=== PATIENT | male | born 1970 | race Caucasian/White ===

== ENCOUNTER 2017-09-09 16:24 | Inpatient (IN) | payer BC ==
--- NOTE | 2017-09-09 17:05 | PDOC ---
Rapid Medical Evaluation Time Seen by Provider: 09/09/17 16:56 Medical Evaluation: Allergies Allergy/AdvReac Type Severity Reaction Status Date / Time Cephalosporins Allergy Verified 12/11/11 13:15 Penicillins Allergy Verified 12/11/11 13:15 I have performed a brief in-person evaluation of this patient. The patient presents with a chief complaint of: fever with cellulitis on back and left armpit. Saw doctor on Wednesday, was started on levaquin. he is a kidney transplant recipient. Limnology Teacher is Dr. Correia. last tylenol was 6am this morning. Patient is not allowed to take motrin. Pertinent physical exam findings: Patient is non toxic but ill appearing. Patient only takes doxy or levaquin for infections. I have ordered the following: sepsis work up The patient will proceed to the ED for further evaluation. Discharge Disposition - Diagnosis Cellulitis - Referrals - Patient Instructions - Post Discharge Activity
--- NOTE | 2017-09-09 17:35 | PDOC ---
History of Present Illness - General Chief Complaint: Respiratory Stated Complaint: FEVER/PAIN Time Seen by Provider: 09/09/17 16:56 - History of Present Illness Initial Comments: 47 year old male with PMH of renal transplant 19 years prior (on Tacrolimus and Mycophenolate) presenting with fevers; left axillary and right lower back swelling, redness, and drainage; and generally weakness for the past week. States that his girlfriend removed a blackhead from his right lower back after which he noticed some swelling, erythema and pain with recent slight drainage. He also has a similar lesion in is left axilla with slight drainage. No measured fevers at home but complains of slight chills and generally feeling "unwell". No nausea, vomiting, diarrhea, constipation, or other symptoms. 09/09/17 18:00 Past History - Past Medical History Allergies/Adverse Reactions: Allergies Allergy/AdvReac Type Severity Reaction Status Date / Time Cephalosporins Allergy Verified 12/11/11 13:15 Penicillins Allergy Verified 12/11/11 13:15 sulfamethoxazole Allergy Verified 09/09/17 17:00 [From Bactrim] trimethoprim [From Bactrim] Allergy Verified 09/09/17 17:00 Home Medications: Ambulatory Orders Albuterol Sulfate [Proair Hfa] 1 - 2 inh PO TID 12/11/11 Aspirin [ASA] 81 mg PO DAILY 12/11/11 Atenolol [Tenormin] 25 mg PO DAILY 12/11/11 Atorvastatin Ca [Lipitor (*)] 40 mg PO HS 12/11/11 Fenofibrate Nanocrystallized [Tricor] 145 mg PO DAILY 12/11/11 Mycophenolate Mofetil [Cellcept] 1,000 mg PO BID 12/11/11 Potassium Chloride [Klor-Con M20] 20 meq PO DAILY 12/11/11 Sertraline HCl 200 mg PO DAILY 12/11/11 Tacrolimus 3 mg PO BID 12/11/11 levoFLOXacin [Levaquin] 250 mg PO DAILY 12/11/11 Cholecalciferol (Vitamin D3) [Vitamin D3 -] 2,000 unit PO DAILY 09/09/17 Clotrimazole/Betamet Diprop [Lotrisone Cream (Small Tube)] 1 applic TP DAILY Dutasteride/Tamsulosin HCl [Umu 0.5-0.4 mg Capsule] 1 each PO DAILY 09/09/17 Famotidine 20 mg PO DAILY 09/09/17 Insulin (LOG) Aspart [NovoLOG -] 20 units SQ BID 09/09/17 Insulin (Levemir) [Levemir Vial] 32 unit SQ BID 09/09/17 Losartan Potassium 100 mg PO DAILY 09/09/17 Magnesium Oxide [Mag-Oxide] 1,200 mg PO BID 09/09/17 [place]-3 Fatty Acids [[place]-3] 2,000 mg PO BID 09/09/17 Sertraline HCl [Zoloft] 100 mg PO BID 09/09/17 Asthma: Yes COPD: No Diabetes: Yes - Suicide/Smoking/Psychosocial Hx Smoking Status: No Smoking History: Never smoked Have you smoked in the past 12 months: No Number of Cigarettes Smoked Daily: 0 Information on smoking cessation initiated: No Hx Alcohol Use: No Drug/Substance Use Hx: No Substance Use Type: None Review of Systems - Review of Systems Constitutional: Yes: Chills, Fever. No: Diaphoresis HEENTM: No: Blurred Vision, Recent change in vision, Double Vision Respiratory: No: Cough, Orthopnea, Shortness of Breath Cardiac (ROS): No: Chest Pain, Edema, Lightheadedness ABD/GI: No: Diarrhea, Nausea, Vomiting : No: Burning, Dysuria, Discharge, Frequency Musculoskeletal: No: Back Pain, Joint Pain, Joint Swelling, Muscle Pain Integumentary: No: Lesions, Lumps Neurological: No: Headache, Numbness Psychiatric: No: Anxiety, Depression *Physical Exam - Vital Signs Last Vital Signs Temp Pulse Resp BP Pulse Ox 99.7 F H 121 H 98 H 157/95 98 09/09/17 17:01 09/09/17 17:01 09/09/17 17:01 09/09/17 17:01 09/09/17 17:01 - Physical Exam General Appearance: Yes: Nourished, Appropriately Dressed. No: Apparent Distress HEENT: positive: EOMI, TERESSA, Normal ENT Inspection, Normal Voice Neck: positive: Trachea midline, Normal Thyroid, Supple. negative: Tender, Rigid Respiratory/Chest: positive: Lungs Clear, Normal Breath Sounds. negative: Chest Tender, Respiratory Distress, Accessory Muscle Use Cardiovascular: positive: Regular Rhythm, Tachycardia Gastrointestinal/Abdominal: positive: Normal Bowel Sounds, Flat, Soft. negative : Tender Musculoskeletal: positive: Normal Inspection. negative: Decreased Range of Motion Extremity: positive: Normal Capillary Refill, Normal Inspection, Normal Range of Motion. negative: Tender Integumentary: positive: Normal Color, Dry, Warm, Swelling, Other (Left lower back subcu swelling with firmness (immature abscess) measuring approximately 3 cms in diameter. Left axillary swelling with slight drainage concerning for ) Neurologic: positive: Fully Oriented, Alert, Normal Mood/Affect, Normal Response , Motor Strength 06/26 ED Treatment Course - LABORATORY CBC & Chemistry Diagram: 09/12/17 06:10 09/12/17 06:10 Medical Decision Making - Medical Decision Making 47 year old male with kidney transplant on immunosuppreants presenting with vital signs concerning for sirs with two mature abscess and surrounding cellulitis. Patient given IV Abx and admitted for further treatment. *DC/Admit/Observation/Transfer Diagnosis at time of Disposition: Cellulitis Qualifiers: Site of cellulitis of extremity: axilla Laterality: left - Referrals - Patient Instructions - Post Discharge Activity
[2017-09-09 17:45] LABS: URINE APPEARANCE CLEAR; URINE BILIRUBIN NEGATIVE (<2.0 mg/dL); URINE COLOR LTYELLOW; URINE GLUCOSE (UA) 3+ (NEGATIVE); URINE KETONE NEGATIVE (NEGATIVE); URINE LEUK ESTERASE NEGATIVE (NEGATIVE); URINE NITRITE NEGATIVE (NEGATIVE); URINE PROTEIN 3+ (NEGATIVE); URINE UROBILINOGEN NEGATIVE mg/dL (0.2-1.0)
[2017-09-09 17:47] LABS: EPI CELLS RARE /HPF (FEW)
[2017-09-09] MEDS ORDERED: ACETAMINOPHEN 1000 MG/100 ML VIAL (NON FORMULARY) IVPB ONE (18:28)
[2017-09-09 18:34] LABS: BASO % 0.2 % (0-2.0); EOS % 0.5 % (0-4.5); HEMATOCRIT 35.1 % (35.4-49); HEMOGLOBIN 11.9 GM/dL (11.7-16.9); MCH 25.5 pg (25.7-33.7); MCHC 33.8 g/dl (32.0-35.9); MEAN CELL VOLUME 75.5 fl (80-96); MEAN PLT VOLUME 8.3 fl (7.5-11.1); MONO % 10.7 % (3.8-10.2); NEUT % 78.6 % (42.8-82.8); PLATELET COUNT 272 K/MM3 (134-434); RBC 4.65 M/mm3 (4.00-5.60); WHITE BLOOD COUNT 16.2 K/mm3 (4.0-10.0)
[2017-09-09] MEDS ORDERED: SODIUM CHLORIDE 0.9% 500 ML INFUS.BAG IV ONE ×2 (18:34→19:35)
[2017-09-09 18:35] LABS: INR 1.38 (0.82-1.09); PROTHROMBIN TIME (PATIENT) 15.6 SEC (9.7-13.0)
[2017-09-09 18:38] LABS: ACTIVATED PTT 31.4 SECONDS (25.2-36.5)
[2017-09-09 18:44] LABS: ALBUMIN 3.5 g/dl (3.4-5.0); ALK PHOS 128 U/L (45-117); ANION GAP 11 (8-16); BILIRUBIN,TOTAL 0.5 mg/dL (0.2-1.0); BLOOD UREA NITROGEN 32 mg/dL (7-18); CALCIUM 9.6 mg/dL (8.5-10.1); CHLORIDE 97 mmol/L (98-107); CO2 23 mmol/L (21-32); CREATININE 1.7 mg/dL (0.7-1.3); GLUCOSE,RANDOM 321 mg/dL (74-106); POTASSIUM 4.3 mmol/L (3.5-5.1); SGOT/AST 16 U/L (15-37); SGPT/ALT 27 U/L (12-78); SODIUM 131 mmol/L (136-145)
[2017-09-09] MEDS ORDERED: ACETAMINOPHEN INJECTION 100 ML IVPB ONE (18:45)
--- NOTE | 2017-09-09 19:33 | PDOC ---
Attending Attestation - Resident Resident Name: Jonathan Benito - ED Attending Attestation I have performed the following: I have examined & evaluated the patient, The case was reviewed & discussed with the resident, I agree w/resident's findings & plan, Exceptions are as noted - Medical Decision Making 09/09/17 19:33 I, Dr. Brooke Dunn, DO, attest that this document has been prepared under my direction and personally reviewed by me in its entirety. I further attest, that it accurately reflects all work, treatment, procedures and medical decision -making performed by me. 09/09/17 19:43 a/p: 47yo male with hx of kidney transplant 19yrs ago with fever since wednesday and L axilla and R low back abscesses -actively draining wounds -wound cultures, blood cultures sent -baseline cr 1.5 -on outpt levaquin - will broaden to vanco -will send labs -cr 1.7, consult placed to Dr. 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 States his girlfriend attempted to "pop" a blackhead on his back prior to the onset of his symptoms. States he has been taking Levaquin PO without apparent relief. - Physicial Exam PE: 09/09/17 20:16 Constitutional: Awake, alert, oriented. No acute distress. Febrile, Warm to touch. Head: Normocephalic. Atraumatic Eyes: PERRL. EOMI. Conjunctivae are not pale. ENT: Mucous membranes are moist and intact. Posterior pharynx without exudates or erythema. Uvula midline. Neck: Supple. Full ROM. No lymphadenopathy. Cardiovascular: +Tachycardic rate, regular rhythm. S1, S2 regular. Distal pulses are 2+ and symmetric. Pulmonary/Chest: No evidence of respiratory distress. Clear to auscultation bilaterally No wheezing, rales or rhonchi. Abdominal: Soft and non-distended. There is no tenderness. No rebound, guarding or rigidity. No organomegaly. No palpable masses. Good bowel sounds. Back: No CVA tenderness. Musculoskeletal: No edema. No cyanosis. No clubbing. Full range of motion in all extremities. Nocalf tenderness. Radial/pedal pulses are intact and 2+ bilaterally Skin: +2.5x 4 cm abscess under the left axillary with purulent discharge. +3x3 cm abscess with purulent discharge to the right lower back. Neurological: Alert and oriented to person, place, and time. Cranial nerves II -XII are grossly intact. Normal speech. Strength is grossly symmetric. No sensory deficits. Psychiatric: Good eye contact. Normal interaction, affect and behavior. - Medical Decision Making 09/09/17 20:21 Documentation prepared by Lula Godfrey, acting as medical videographer for Brooke Dunn DO. <Lula Godfrey - Last Filed: 09/09/17 20:21> Heart Score/ECG Review - ECG Intrepretation Comment:: 09/09/17 19:47 sinus tach at 118, nl axis, nl interval, t wave inversions III, no acute st changes <Brooke Dunn - Last Filed: 09/09/17 19:43>
[2017-09-09] MEDS ORDERED: VANCOMYCIN 1,000 MG in DEXTROSE 5%-WATER - 250 ML IVPB ONE (19:34)
--- NOTE | 2017-09-09 21:00 | PN ---
Teaching Attending Note Name of Resident: Mike Gardner ATTENDING PHYSICIAN STATEMENT I saw and evaluated the patient. I reviewed the resident's note and discussed the case with the resident. I agree with the resident's findings and plan as documented. SUBJECTIVE: Patient is a 47 year old man with PMH of Asthma, DM, renal transplant 19 years prior (on Tacrolimus and Mycophenolate) presenting with fevers, left axillary and right lower back swelling abscesses. He also has had generalized weakness for the past week and has not been eating well or ingesting enough liquids in past 3 days. States that his girlfriend removed a blackhead from his right lower back with a tweezer. Has had prior episodes of skin abscess. No diabetic eye care or foot care for over one year. Says his creatinine was 1.3 mg/dL two weeks ago and is now 1.7 mg/dL so he is naturally concerned about his transplant kidney function. OBJECTIVE: Alert and in no distress Vital Signs Period Temp Pulse Resp BP Sys/Pena Pulse Ox Last 24 Hr 99.7 F-102.5 F 121-125 20-98 131-157/89-95 96-98 HEENT: No Jaundice, eye redness or discharge, PERRLA, EOMI. Normocephalic, atraumatic. External ears are normal and hearing is grossly intact. No nasal discharge. 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 Neck: Supple, nontender. No palpable adenopathy or thyromegaly. No JVD Chest: Good effort. Clear to auscultation and percussion. Heart: Regular. No S3, rub or murmur Abdomen: Not distended, soft, nontender and no HSM. No rebound or guarding. Normoactive bowel sounds. Transplant kidney in RLQ and not tender. Ext: Peripheral pulses intact. No leg edema. Left axilla abscess and right lower back abscess. Skin: Warm and dry. No petechiae, rash or ecchymosis. Neuro: Alert. Oriented x3. CN 2-12 grossly intact. Sensation grossly intact in all four extremities and DTR are symmetric. Home Medications Medication Instructions Recorded Albuterol Sulfate [Proair Hfa] 1 - 2 inh PO TID 12/11/11 Aspirin [ASA] 81 mg PO DAILY 12/11/11 Atenolol [Tenormin] 25 mg PO DAILY 12/11/11 Atorvastatin Ca [Lipitor (*)] 40 mg PO HS 12/11/11 Fenofibrate Nanocrystallized 145 mg PO DAILY 12/11/11 [Tricor] Mycophenolate Mofetil [Cellcept] 1,000 mg PO BID 12/11/11 Potassium Chloride [Klor-Con M20] 20 meq PO DAILY 12/11/11 Sertraline HCl 200 mg PO DAILY 12/11/11 Tacrolimus 3 mg PO BID 12/11/11 levoFLOXacin [Levaquin] 250 mg PO DAILY 12/11/11 Cholecalciferol (Vitamin D3) 2,000 unit PO DAILY 09/09/17 [Vitamin D3 -] Clotrimazole/Betamet Diprop 1 applic TP DAILY 09/09/17 [Lotrisone Cream (Small Tube)] Dutasteride/Tamsulosin HCl [Umu 1 each PO DAILY 09/09/17 0.5-0.4 mg Capsule] Famotidine 20 mg PO DAILY 09/09/17 Insulin (LOG) Aspart [NovoLOG -] 20 units SQ BID 09/09/17 Insulin (Levemir) [Levemir Vial] 32 unit SQ DAILY 09/09/17 Losartan Potassium 100 mg PO DAILY 09/09/17 Magnesium Oxide [Mag-Oxide] 1,200 mg PO BID 09/09/17 Osteen-3 Fatty Acids [[place]-3] 2,000 mg PO BID 09/09/17 Abnormal Lab Results 09/09/17 09/09/17 09/09/17 17:35 18:00 18:00 WBC 16.2 H Hct 35.1 L MCV 75.5 L MCH 25.5 L Monocytes % 10.7 H PT with INR 15.60 H INR 1.38 H D Sodium Chloride BUN Creatinine Random Glucose Alkaline Phosphatase Urine Protein 3+ H Urine Glucose (UA) 3+ H Urine Blood 1+ H 09/09/17 18:00 WBC Hct MCV MCH Monocytes % PT with INR INR Sodium 131 L Chloride 97 L BUN 32 H Creatinine 1.7 H Random Glucose 321 H* Alkaline Phosphatase 128 H Urine Protein Urine Glucose (UA) Urine Blood ASSESSMENT AND PLAN: 1. Left axilla and right lower back abscess - Will treat him with clindamycin 600 mg IV q 6 hours pending culture report. He had blood and wound cultures sent. Consult surgery for possible I&D. Use warm compress in the axilla to reduce pain. CXR is negative. 2. Kidney transplant - Continue Tacrolimus and Mycophenolate. Will give gentle IV hydration (NS at 50 ml/hour) and encourage liberal oral fluids. He is dehydrated and it is prudent to avoid vancomycin as well as other nephrotoxic agents such as NSAIDS, aminoglycosides, contrast dyes and certain alternative medicine products. Consult nephrology. May need to investigate and quantify proteinuria. 3. DM - For now, we will hold the home diabetes drugs and implement sliding scale insulin regimen. Provide comprehensive diabetes care with patient teaching and counseling about the importance of euglycemia, eye care and foot care. 4. Low MCV Anemia - Do basic anemia work up including serial stool guaiacs, reticulocyte count and iron studies. 5. Obesity - Will provide patient all the necessary assistance, counseling and positive reinforcement to facilitate weight loss. Consult process plant operator. 6. DVT prophylaxis - Heparin 5000u sq tid. 7. Advance directives - Full code
[2017-09-09] MEDS ORDERED: VANCOMYCIN 1 GRAM (PRE-DOCKED) 1,000 MG/250 ML BAG IVPB ONE (21:20)
[2017-09-09] MEDS ORDERED: ATORVASTATIN CA 40 MG TABLET (FP) PO SCH (22:00)
[2017-09-09] MEDS ORDERED: ALBUTEROL SO4 8 GM HFA INHALER IH PRN (22:00)
[2017-09-09] MEDS: INSULIN SLIDING SCALE (NOVOLOG) 1 VIAL SQ SCH (22:41)
[2017-09-09] MEDS: TACROLIMUS ANHYDROUS 1 MG CAPSULE PO SCH (23:04)
[2017-09-09] MEDS: CLINDAMYCIN 600MG PREMIX IVPB 600 MG/50 ML BAG IVPB SCH (23:04)
[2017-09-09] MEDS: MYCOPHENOLATE MOFETIL 500 MG TABLET PO SCH (23:05)
[2017-09-09] MEDS ORDERED: SODIUM CHLORIDE 1,000 ML IV SCH (23:45)
[2017-09-09 23:50] VITALS: BMI 36.8
[2017-09-10] MEDS ORDERED: ACETAMINOPHEN 325 MG TABLET (FP) PO PRN ×2 (01:15→19:40)
--- NOTE | 2017-09-10 01:47 | HP ---
CHIEF COMPLAINT: Left axillary and right lower back pain, swelling PCP: HISTORY OF PRESENT ILLNESS: 47 y/o male with PMH renal transplant on tacrolimus and mycophenolate, DM, asthma presents with complaint of left axillary and right lower back pain and swelling for the past week. States that he experienced increased sweating and pruritis under his arms, that resulted in frequent scratching but denies breaking the skin. Also admits that approx. 2 weeks ago his girlfriend removed several blackheads from his back with tweezers. He now reports pain and swelling over the area that began worsening over the weekend. Admits to mucopurulent discharge from both sites. Endorses history of prior abscesses. Admits fevers, sweats, chills, malaise, nausea. Denies chest pain, palpitations , shortness of breath, vomiting, diarrhea, hematuria. ER course was notable for: (1) Levaquin, Vancomyin, Ofirimev (2) blood cx, urine cx, wound cx (3) Recent Travel: PAST MEDICAL HISTORY: PAST SURGICAL HISTORY: Social History: Smoking: denies Alcohol: denies Drugs: denies Family History: Allergies Cephalosporins Allergy (Verified 12/11/11 13:15) Penicillins Allergy (Verified 12/11/11 13:15) sulfamethoxazole [From Bactrim] Allergy (Verified 09/09/17 17:00) trimethoprim [From Bactrim] Allergy (Verified 09/09/17 17:00) HOME MEDICATIONS: Home Medications Medication Instructions Recorded Albuterol Sulfate [Proair Hfa] 1 - 2 inh PO TID 12/11/11 Aspirin [ASA] 81 mg PO DAILY 12/11/11 Atenolol [Tenormin] 25 mg PO DAILY 12/11/11 Atorvastatin Ca [Lipitor (*)] 40 mg PO HS 12/11/11 Fenofibrate Nanocrystallized 145 mg PO DAILY 12/11/11 [Tricor] Mycophenolate Mofetil [Cellcept] 1,000 mg PO BID 12/11/11 Potassium Chloride [Klor-Con M20] 20 meq PO DAILY 12/11/11 Sertraline HCl 200 mg PO DAILY 12/11/11 Tacrolimus 3 mg PO BID 12/11/11 levoFLOXacin [Levaquin] 250 mg PO DAILY 12/11/11 Cholecalciferol (Vitamin D3) 2,000 unit PO DAILY 09/09/17 [Vitamin D3 -] Clotrimazole/Betamet Diprop 1 applic TP DAILY 09/09/17 [Lotrisone Cream (Small Tube)] Dutasteride/Tamsulosin HCl [Umu 1 each PO DAILY 09/09/17 0.5-0.4 mg Capsule] Famotidine 20 mg PO DAILY 09/09/17 Insulin (LOG) Aspart [NovoLOG -] 20 units SQ BID 09/09/17 Insulin (Levemir) [Levemir Vial] 32 unit SQ DAILY 09/09/17 Losartan Potassium 100 mg PO DAILY 09/09/17 Magnesium Oxide [Mag-Oxide] 1,200 mg PO BID 09/09/17 [place]-3 Fatty Acids [[place]-3] 2,000 mg PO BID 09/09/17 Sertraline HCl [Zoloft] 200 mg PO DAILY 09/09/17 REVIEW OF SYSTEMS As per HPI PHYSICAL EXAMINATION Vital Signs - 24 hr 09/09/17 09/09/17 09/09/17 17:01 17:24 18:25 Temperature 99.7 F H 102.5 F H Pulse Rate 121 H Pulse Rate [ 125 H Left Radial] Respiratory 98 H 20 Rate Blood Pressure 157/95 Blood Pressure 131/89 [Right Arm] O2 Sat by Pulse 98 98 96 Oximetry (%) 09/09/17 23:00 Temperature 98.7 F Pulse Rate 103 H Pulse Rate [ Left Radial] Respiratory 19 Rate Blood Pressure 153/86 Blood Pressure [Right Arm] O2 Sat by Pulse 97 Oximetry (%) GENERAL: Awake, alert, and fully oriented, in no acute distress. HEAD: Normal with no signs of trauma. EYES: Pupils equal, round and reactive to light, extraocular movements intact, sclera anicteric. EARS, NOSE, THROAT: Oropharynx clear without exudates. Moist mucous membranes. NECK: Normal range of motion, supple without lymphadenopathy. LUNGS: Breath sounds equal, clear to auscultation bilaterally. No wheezes, and no crackles. HEART: Regular rate and rhythm, normal S1 and S2 without murmur, rub or gallop. ABDOMEN: Soft, nontender, not distended, normoactive bowel sounds, no guarding, no rebound. EXTREMITIES: 2+ pulses, warm, well-perfused. No cyanosis. No peripheral edema. NEUROLOGICAL: Cranial nerves II-XII intact. Normal speech. PSYCHIATRIC: Cooperative. Appropriate mood and affect. SKIN: 2.5cm x 4cm abscess at left axilla, 3cm x 3cm abscess at right lower back. Both draining purulent discharge, indurated, erythematous, tender to palpation. Laboratory Results - last 24 hr 09/09/17 09/09/17 09/09/17 17:35 18:00 18:00 WBC 16.2 H RBC 4.65 Hgb 11.9 Hct 35.1 L MCV 75.5 L MCH 25.5 L MCHC 33.8 RDW 15.0 Plt Count 272 D MPV 8.3 Absolute Neuts (auto) 12.7 Neutrophils % 78.6 Lymphocytes % 10.0 D Monocytes % 10.7 H Eosinophils % 0.5 Basophils % 0.2 Nucleated RBC % 0 PT with INR 15.60 H INR 1.38 H D PTT (Actin FS) 31.4 Sodium Potassium Chloride Carbon Dioxide Anion Gap BUN Creatinine Creat Clearance w eGFR POC Glucometer Random Glucose Lactic Acid Calcium Total Bilirubin AST ALT Alkaline Phosphatase Troponin I Total Protein Albumin Urine Color Ltyellow Urine Appearance Clear Urine pH 5.0 Ur Specific [place] 1.013 Urine Protein 3+ H Urine Glucose (UA) 3+ H Urine Ketones Negative Urine Blood 1+ H Urine Nitrite Negative Urine Bilirubin Negative Urine Urobilinogen Negative Ur Leukocyte Esterase Negative Urine WBC (Auto) 1 Urine RBC (Auto) 3 Ur Epithelial Cells Rare 09/09/17 09/09/17 09/09/17 18:00 18:00 18:00 WBC RBC Hgb Hct MCV MCH MCHC RDW Plt Count MPV Absolute Neuts (auto) Neutrophils % Lymphocytes % Monocytes % Eosinophils % Basophils % Nucleated RBC % PT with INR INR PTT (Actin FS) Sodium 131 L Potassium 4.3 Chloride 97 L Carbon Dioxide 23 Anion Gap 11 BUN 32 H Creatinine 1.7 H Creat Clearance w eGFR 43.61 POC Glucometer Random Glucose 321 H* Lactic Acid 1.1 Calcium 9.6 Total Bilirubin 0.5 AST 16 ALT 27 Alkaline Phosphatase 128 H Troponin I < 0.02 Total Protein 8.0 Albumin 3.5 Urine Color Urine Appearance Urine pH Ur Specific [place] Urine Protein Urine Glucose (UA) Urine Ketones Urine Blood Urine Nitrite Urine Bilirubin Urine Urobilinogen Ur Leukocyte Esterase Urine WBC (Auto) Urine RBC (Auto) Ur Epithelial Cells 07/19/18 22:40 WBC RBC Hgb Hct MCV MCH MCHC RDW Plt Count MPV Absolute Neuts (auto) Neutrophils % Lymphocytes % Monocytes % Eosinophils % Basophils % Nucleated RBC % PT with INR INR PTT (Actin FS) Sodium Potassium Chloride Carbon Dioxide Anion Gap BUN Creatinine Creat Clearance w eGFR POC Glucometer 318 Random Glucose Lactic Acid Calcium Total Bilirubin AST ALT Alkaline Phosphatase Troponin I Total Protein Albumin Urine Color Urine Appearance Urine pH Ur Specific [place] Urine Protein Urine Glucose (UA) Urine Ketones Urine Blood Urine Nitrite Urine Bilirubin Urine Urobilinogen Ur Leukocyte Esterase Urine WBC (Auto) Urine RBC (Auto) Ur Epithelial Cells ASSESSMENT/PLAN: Multiple Abscesses- left axilla, right lower back -DC Vanco d/t nephrotixicity -Begin Clindamycin 600 Q6 -Pain control with Tylenol -Apply warm compress PRN -ID consult requested for antibiotic recommendations -Surgical consult requested for possible I&D -F/U wound, blood cultures, urine cultures S/P renal transplant -Cr at baseline 1.5 -> 1.7 now -IVNS at 50ml/hr, encourage oral hydration -Reinstate home medication tacrolimus, mcophenolate -Nephrology consult requested -F/U BUN, Cr Microcytic anemia -F/U Fe studies, reticulocyte count, stool guiac, DM -Hold home medications -ISS, fingerstick blood glucose monitoring Obesity -Can Crimper consult requested Prophylaxis -Heparin 5000u subq TID FEN -IVNS at 50ml/ hr -Trend Na and Chloride -Renal diet Disposition: Admit to medical surgical floor Advance directives: full code Case discussed with field installation technician attending Visit type - Emergency Visit Emergency Visit: Yes ED Registration Date: 09/09/17 Care time: The patient presented to the Emergency Department on the above date and was hospitalized for further evaluation of their emergent condition. - New Patient This patient is new to me today: Yes Date on this admission: 09/10/17 - Critical Care Critical Care patient: No Hospitalist Screening - Colonoscopy Questionnaire Colonoscopy Questionnaire: Colonoscopy Questionnaire - Patient: 50 - 75 years old and never had a screening colonoscopy: Unknown History of colon or rectal polyps, or CA: Unknown History of IBD, Crohn's disease or UC: Unknown History of abdominal radiation therapy as a child: Unknown - Relative: 1 with colon or rectal CA, or polyps at age 60 or younger: Unknown Colon or rectal CA diagnosed at age 45 or younger: Unknown Multiple relatives with colon or rectal CA: Unknown - Outcome: Screening Result: Negative Screen
[2017-09-10] MEDS: CLINDAMYCIN 600MG PREMIX IVPB 600 MG/50 ML BAG IVPB SCH ×4 (02:37→20:30)
[2017-09-10] MEDS ORDERED: HEPARIN NA (PORCINE) 5,000 UNITS/ML 1ML VIAL SQ SCH (06:00)
[2017-09-10] MEDS: INSULIN SLIDING SCALE (NOVOLOG) 1 VIAL SQ SCH ×4 (06:26→22:50)
[2017-09-10 07:17] LABS: BASO % 0.2 % (0-2.0); EOS % 0.8 % (0-4.5); HEMATOCRIT 32.5 % (35.4-49); HEMOGLOBIN 11.2 GM/dL (11.7-16.9); LYMPH % 9.2 % (8-40); MCH 26.2 pg (25.7-33.7); MCHC 34.6 g/dl (32.0-35.9); MEAN CELL VOLUME 75.6 fl (80-96); MEAN PLT VOLUME 8.1 fl (7.5-11.1); MONO % 11.2 % (3.8-10.2); NEUT % 78.6 % (42.8-82.8); PLATELET COUNT 233 K/MM3 (134-434); RBC 4.29 M/mm3 (4.00-5.60); WHITE BLOOD COUNT 14.8 K/mm3 (4.0-10.0)
[2017-09-10 07:38] LABS: ALBUMIN 2.9 g/dl (3.4-5.0); ANION GAP 12 (8-16); BILIRUBIN,TOTAL 0.6 mg/dL (0.2-1.0); BLOOD UREA NITROGEN 34 mg/dL (7-18); CALCIUM 8.6 mg/dL (8.5-10.1); CHLORIDE 97 mmol/L (98-107); CO2 21 mmol/L (21-32); CREATININE 1.6 mg/dL (0.7-1.3); GLUCOSE,RANDOM 286 mg/dL (74-106); POTASSIUM 4.4 mmol/L (3.5-5.1); SGOT/AST 11 U/L (15-37); SGPT/ALT 21 U/L (12-78); SODIUM 130 mmol/L (136-145)
[2017-09-10 07:41] LABS: ALK PHOS 109 U/L (45-117)
--- NOTE | 2017-09-10 09:06 | CONSULT ---
- Consultation REQUESTING PROVIDER: Margarito Gianluca CONSULT REQUEST: We have been asked to surgically evaluate this patient for multiple abscesses PCP: Gila Navarro MD HPI: Called to guido 47 yo male with PMHx as noted below, presents to [facility] ED with c/o pain to LEFT axilla and RIGHT lower back x1 week. Admits to profuse underarm sweating/pruritis which lead to him scratching. Also informs me that ~ 2 weeks ago his girlfriend tired removing a blackhead from his right lower back --> now grossly swollen/tender and draining. States he took his temp at home orally 101F. Took Tylenol 650mg Q4H. Was seen by his PCP who started him on PO ABX. [place] very tired yesterday and unable to move so he came to hospital for further evaluation. Denies CP, SOB, n/v/d/c, hematuria, or flank pain. PMHx: Morbid obesity, Tyep 2 Diabetes, Asthma, Strep Pharyngitis PSHx: Renal transplant x19 years Home Meds Albuterol Sulfate [Proair Hfa] 1 - 2 inh PO TID 12/11/11 Aspirin [ASA] 81 mg PO DAILY 12/11/11 Atenolol [Tenormin] 25 mg PO DAILY 12/11/11 Atorvastatin Ca [Lipitor (*)] 40 mg PO HS 12/11/11 Fenofibrate Nanocrystallized [Tricor] 145 mg PO DAILY 12/11/11 Mycophenolate Mofetil [Cellcept] 1,000 mg PO BID 12/11/11 Potassium Chloride [Klor-Con M20] 20 meq PO DAILY 12/11/11 Sertraline HCl 200 mg PO DAILY 12/11/11 Tacrolimus 3 mg PO BID 12/11/11 levoFLOXacin [Levaquin] 250 mg PO DAILY 12/11/11 Cholecalciferol (Vitamin D3) [Vitamin D3 -] 2,000 unit PO DAILY 09/09/17 Clotrimazole/Betamet Diprop [Lotrisone Cream (Small Tube)] 1 applic TP DAILY Dutasteride/Tamsulosin HCl [Umu 0.5-0.4 mg Capsule] 1 each PO DAILY 09/09/17 Famotidine 20 mg PO DAILY 09/09/17 Insulin (LOG) Aspart [NovoLOG -] 20 units SQ BID 09/09/17 Insulin (Levemir) [Levemir Vial] 32 unit SQ DAILY 09/09/17 Losartan Potassium 100 mg PO DAILY 09/09/17 Magnesium Oxide [Mag-Oxide] 1,200 mg PO BID 09/09/17 [place]-3 Fatty Acids [[place]-3] 2,000 mg PO BID 09/09/17 Sertraline HCl [Zoloft] 200 mg PO DAILY 09/09/17 Allergies Cephalosporins, PCNS, Sulfa ROS: CONSTITUTIONAL: Absent: loss of appetite, weight change CARDIOVASCULAR: Absent: syncope, palpitations, irregular heart rate, lightheadedness, peripheral edema RESPIRATORY: Absent: cough, dyspnea with exertion, wheezing, stridor, hemoptysis GASTROINTESTINAL:Absent: abdominal pain, abdominal distension, melena, hematochezia GENITOURINARY: Absent: dysuria, frequency, urgency, hesitancy, genital pain MUSCULOSKELETAL: Absent: myalgia, arthralgia, joint swelling, back pain, neck pain SKIN: Absent: see hpi HEMATOLOGIC/IMMUNOLOGIC: Absent: easy bleeding, easy bruising, lymphadenopathy NEUROLOGIC: Absent: headache, focal weakness, paresthesias, dizziness, unsteady gait, seizure, mental status changes, PSYCHIATRIC: Absent: anxiety, depression, suicidal or homicidal ideation, hallucinations. PE: GENERAL: A&Ox3 HEAD: NC.AT. EYES: PERRL, sclera anicteric, conjunctiva clear. NECK:Supple without lymphadenopathy UE: Left axilla with fluctuant mass, + purulent drainage, erythematous, hot to touch, TTP ABD: Obese. Soft. NT BACK: Right low back with indurated/fluctuant mass, erythematous, + purulent drainage, TTP Last Vital Signs Temp Pulse Resp BP Pulse Ox 99.8 F H 98 H 20 150/85 97 09/10/17 05:52 09/10/17 05:52 09/10/17 05:52 09/10/17 05:52 09/09/17 23:00 CBC, BMP 09/10/17 06:20 09/10/17 06:20 INR, PTT INR 1.38 (0.82-1.09) H D 09/09/17 18:00 Hepatic Panel Total Bilirubin 0.6 mg/dL (0.2-1.0) 09/10/17 06:20 AST 11 U/L (15-37) L D 09/10/17 06:20 ALT 21 U/L (12-78) D 09/10/17 06:20 Alkaline Phosphatase 109 U/L (45-117) D 09/10/17 06:20 Albumin 2.9 g/dl (3.4-5.0) L 09/10/17 06:20 Problem List - Problems (1) Abscess Assessment/Plan: 47 yo male with h/o renal transplant 19 yrs ago, admit w/ multiple abscesses ( Lt axilla and Rt low back). Needs to go to OR for surgical I&D with washout Made NPO as he is added for OR schedule at 4PM today - may take his morning meds w/ sips of water Type and Screen ordered IV ABX as per ID Medical optimization/clearance Above plan discussed with Dr. Hough and agrees Code(s): L02.91 - CUTANEOUS ABSCESS, UNSPECIFIED Visit type - Case Type Case Type: ED Admission - Emergency Emergency Visit: Yes ED Registration Date: 09/09/17 Care time: The patient presented to the Emergency Department on the above date and was hospitalized for further evaluation of their emergent condition. - New patient This patient is new to me today: Yes Date on this admission: 09/10/17
[2017-09-10] MEDS ORDERED: INSULIN (LEVEMIR) 100 UNITS/ML UNITS SQ SCH (10:00)
[2017-09-10] MEDS ORDERED: ATENOLOL 25 MG TABLET (FP) PO SCH (10:00)
[2017-09-10] MEDS ORDERED: ASPIRIN 81 MG CHEWABLE TABLETS PO SCH (10:00)
[2017-09-10] MEDS ORDERED: LOSARTAN POTASSIUM 50 MG TABLET (FP) PO SCH (10:00)
[2017-09-10] MEDS ORDERED: PT OWN MED DRAWER 7, Y5N ONE ×2 (10:19→22:38)
[2017-09-10] MEDS: MYCOPHENOLATE MOFETIL 500 MG TABLET PO SCH ×2 (10:24→22:49)
[2017-09-10] MEDS: TACROLIMUS ANHYDROUS 1 MG CAPSULE PO SCH ×2 (10:25→22:49)
--- NOTE | 2017-09-10 12:12 | EKG ---
Test Reason : Blood Pressure : / mmHG Vent. Rate : 118 BPM Atrial Rate : 118 BPM P-R Int : 144 ms QRS Dur : 086 ms QT Int : 312 ms P-R-T Axes : 027 029 007 degrees QTc Int : 437 ms SINUS TACHYCARDIA OTHERWISE NORMAL ECG WHEN COMPARED WITH ECG OF 30-NOV-2009 01:24, T WAVE INVERSION NO LONGER EVIDENT IN ANTEROLATERAL LEADS Confirmed by LEXIS CHEATHAM MD ([id number]) on 09/10/2017 12:12:02 PM Referred By: Confirmed By:LEXIS CHEATHAM MD
--- NOTE | 2017-09-10 12:40 | PN ---
Progress Note (short form) - Note Progress Note: ID Consult dictated Soft tissue abscesses Fever/ leukocytosis R/O sepsis S/P renal transplant Azotemia Cephalosporin allergy For I&D Redose vancomycin, check level am HIV testing (pt consents)
--- NOTE | 2017-09-10 12:45 | CONSULT ---
Consult - text type - Consultation Consultation Note: Renal Consult for ESRD/Renal Transplant This is a 47 year old gentleman with PMhx of ESRD s/p Renal Transplant (19 year ago from live donor), DM, Asthma presented with cellulitis/abcess on skin. Pt was treated with oral Abx as outpatient w/o signifincat improvement. Denises any sob, chest pain, abd pain. No pain over transplanted kidney site. Making urine. On Tacrolimus and Cellcept at home. Denies any NSAID use. PMhx: as above Allergies: NKDA Family hx: NC Social hx: No T/A/D ROS: as per HPI Home Medications Medication Instructions Recorded Albuterol Sulfate [Proair Hfa] 1 - 2 inh PO TID 12/11/11 Aspirin [ASA] 81 mg PO DAILY 12/11/11 Atenolol [Tenormin] 25 mg PO DAILY 12/11/11 Atorvastatin Ca [Lipitor (*)] 40 mg PO HS 12/11/11 Fenofibrate Nanocrystallized 145 mg PO DAILY 12/11/11 [Tricor] Mycophenolate Mofetil [Cellcept] 1,000 mg PO BID 12/11/11 Potassium Chloride [Klor-Con M20] 20 meq PO DAILY 12/11/11 Sertraline HCl 200 mg PO DAILY 12/11/11 Tacrolimus 3 mg PO BID 12/11/11 levoFLOXacin [Levaquin] 250 mg PO DAILY 12/11/11 Cholecalciferol (Vitamin D3) 2,000 unit PO DAILY 09/09/17 [Vitamin D3 -] Clotrimazole/Betamet Diprop 1 applic TP DAILY 09/09/17 [Lotrisone Cream (Small Tube)] Dutasteride/Tamsulosin HCl [Umu 1 each PO DAILY 09/09/17 0.5-0.4 mg Capsule] Famotidine 20 mg PO DAILY 09/09/17 Insulin (LOG) Aspart [NovoLOG -] 20 units SQ BID 09/09/17 Insulin (Levemir) [Levemir Vial] 32 unit SQ DAILY 09/09/17 Losartan Potassium 100 mg PO DAILY 09/09/17 Magnesium Oxide [Mag-Oxide] 1,200 mg PO BID 09/09/17 [place]-3 Fatty Acids [[place]-3] 2,000 mg PO BID 09/09/17 Sertraline HCl [Zoloft] 200 mg PO DAILY 09/09/17 Vital Signs Temperature 99.8 F H 09/10/17 05:52 Pulse Rate 98 H 09/10/17 05:52 Respiratory Rate 20 09/10/17 05:52 Blood Pressure 150/85 09/10/17 05:52 O2 Sat by Pulse Oximetry (%) 97 09/09/17 23:00 Intake & Output 09/07/17 09/08/17 09/09/17 09/10/17 23:59 23:59 23:59 23:59 Intake Total 600 Balance 600 Weight 103.6 kg NAD awake and alert MMM, no JVD, Neck supple RRR, No M/R CTA, no rales or wheeze soft NT/ND No LE edema CBC, BMP 09/10/17 06:20 09/10/17 06:20 Laboratory Tests 09/09/17 09/10/17 17:35 06:20 Calcium 8.6 Albumin 2.9 L Urine Protein 3+ H Urine Glucose (UA) 3+ H Urine Blood 1+ H Current Medications Acetaminophen (Tylenol -) 650 mg PO Q6H PRN PRN Reason: Fever Or Pain Last Admin: 09/10/17 01:37 Dose: 650 mg Albuterol Sulfate (Ventolin Hfa Inhaler -) 2 puff IH Q6H PRN PRN Reason: SHORTNESS OF BREATH Aspirin (Asa -) 81 mg PO DAILY [facility] Atenolol (Tenormin -) 25 mg PO DAILY [facility] Last Admin: 09/10/17 10:23 Dose: 25 mg Atorvastatin Calcium (Lipitor -) 40 mg PO HS [facility] Last Admin: 09/09/17 22:42 Dose: 40 mg Heparin Sodium (Porcine) (Heparin -) 5,000 unit SQ TID RAMY Last Admin: 09/10/17 06:21 Dose: Not Given Clindamycin Phosphate (Cleocin 600 Mg Premix Ivpb -) 600 mg in 50 mls @ 100 mls /hr IVPB Q6H-IV RAMY; Protocol Last Admin: 09/10/17 10:22 Dose: 100 mls/hr Sodium Chloride (Normal Saline -) 1,000 mls @ 50 mls/hr IV ASDIR RAMY Stop: 09/10/17 23:41 Last Admin: 09/10/17 00:42 Dose: 50 mls/hr Vancomycin HCl 1,250 mg/ (Dextrose) 250 mls @ 250 mls/2 hr IVPB ONCE ONE; Protocol Stop: 09/10/17 14:39 Insulin Aspart (Novolog Vial Sliding Scale -) 1 vial SQ ACHS [facility]; Protocol Last Admin: 09/10/17 12:09 Dose: Not Given Insulin Detemir (Levemir Vial) 20 units SQ ACBK [facility] Last Admin: 09/10/17 10:25 Dose: Not Given Mycophenolate Mofetil (Cellcept -) 1,000 mg PO BID [facility] Last Admin: 09/10/17 10:24 Dose: 1,000 mg Tacrolimus (Prograf) 3 mg PO BID [facility] Last Admin: 09/10/17 10:25 Dose: 3 mg 47 year old gentleman with PMhx of ESRD s/p Renal Transplant, DM, Asthma presented with cellulitis. #ESRD s/p Renal Transplant #Cellulitis/Abbesses #DM #Hypertension Renal function slightly worse then baseline but likely due to mild volume depletion in setting of acute infection continue IVF at 75cc per hour continue Tacrolimus and Cellcept at home dose, can consider withholding Cellcept if pt has bacteremia or becomes toxic appearing Trend reanl function and electrolytes Continue vanco dosed by levels Surgical follow up f/u cutlures continue Atenolol thank you will follow Chandler Garrett DO
[2017-09-10] MEDS ORDERED: SODIUM CHLORIDE 1,000 ML IV SCH ×3 (13:58→20:06)
[2017-09-10] MEDS ORDERED: VANCOMYCIN 1,250 MG in DEXTROSE 5%-WATER - 250 ML IVPB ONE (14:00)
--- NOTE | 2017-09-10 14:10 | PN ---
Teaching Attending Note Name of Resident: Ava Tang ATTENDING PHYSICIAN STATEMENT I saw and evaluated the patient. I reviewed the resident's note and discussed the case with the resident. I agree with the resident's findings and plan as documented with exceptions below. SUBJECTIVE: Patient seen and examined. left axilla and right lower back pain with swelling and discharge. Positive fevers. Reports decreased po intake over the last few days. Awaiting OR currently. OBJECTIVE: Vital Signs Period Temp Pulse Resp BP Sys/Pena Pulse Ox Last 24 Hr 98.7 F-102.5 F 98-125 19-98 121-157/83-95 96-98 Intake & Output 09/07/17 09/08/17 09/09/17 09/10/17 23:59 23:59 23:59 23:59 Intake Total 600 Balance 600 Weight 228 lb 6.4 oz General: sitting in bed in no acute distress Extremities: Left axilla- indurated fluctuant warm tender mass with overlying erythema and purulent discharge Back: similar right lower back indurated fluctuant warm tender mass with overlying erythema and purulent discharge chest: CTAB, no rales or wheezing Abdomen:soft, NT, ND, positive bowel sounds Home Medications Medication Instructions Recorded Albuterol Sulfate [Proair Hfa] 1 - 2 inh PO TID 12/11/11 Aspirin [ASA] 81 mg PO DAILY 12/11/11 Atenolol [Tenormin] 25 mg PO DAILY 12/11/11 Atorvastatin Ca [Lipitor (*)] 40 mg PO HS 12/11/11 Fenofibrate Nanocrystallized 145 mg PO DAILY 12/11/11 [Tricor] Mycophenolate Mofetil [Cellcept] 1,000 mg PO BID 12/11/11 Potassium Chloride [Klor-Con M20] 20 meq PO DAILY 12/11/11 Sertraline HCl 200 mg PO DAILY 12/11/11 Tacrolimus 3 mg PO BID 12/11/11 levoFLOXacin [Levaquin] 250 mg PO DAILY 12/11/11 Cholecalciferol (Vitamin D3) 2,000 unit PO DAILY 09/09/17 [Vitamin D3 -] Clotrimazole/Betamet Diprop 1 applic TP DAILY 09/09/17 [Lotrisone Cream (Small Tube)] Dutasteride/Tamsulosin HCl [Umu 1 each PO DAILY 09/09/17 0.5-0.4 mg Capsule] Famotidine 20 mg PO DAILY 09/09/17 Insulin (LOG) Aspart [NovoLOG -] 20 units SQ BID 09/09/17 Insulin (Levemir) [Levemir Vial] 32 unit SQ DAILY 09/09/17 Losartan Potassium 100 mg PO DAILY 09/09/17 Magnesium Oxide [Mag-Oxide] 1,200 mg PO BID 09/09/17 [place]-3 Fatty Acids [[place]-3] 2,000 mg PO BID 09/09/17 Sertraline HCl [Zoloft] 200 mg PO DAILY 09/09/17 Active Medications Acetaminophen (Tylenol -) 650 mg PO Q6H PRN PRN Reason: Fever Or Pain Last Admin: 09/10/17 01:37 Dose: 650 mg Albuterol Sulfate (Ventolin Hfa Inhaler -) 2 puff IH Q6H PRN PRN Reason: SHORTNESS OF BREATH Aspirin (Asa -) 81 mg PO DAILY [facility] Atenolol (Tenormin -) 25 mg PO DAILY [facility] Last Admin: 09/10/17 10:23 Dose: 25 mg Atorvastatin Calcium (Lipitor -) 40 mg PO HS RAMY Last Admin: 09/09/17 22:42 Dose: 40 mg Heparin Sodium (Porcine) (Heparin -) 5,000 unit SQ TID [facility] Last Admin: 09/10/17 06:21 Dose: Not Given Clindamycin Phosphate (Cleocin 600 Mg Premix Ivpb -) 600 mg in 50 mls @ 100 mls /hr IVPB Q6H-IV [facility]; Protocol Last Admin: 09/10/17 10:22 Dose: 100 mls/hr Vancomycin HCl 1,250 mg/ (Dextrose) 250 mls @ 250 mls/2 hr IVPB ONCE ONE; Protocol Stop: 09/10/17 15:59 Sodium Chloride (Normal Saline -) 1,000 mls @ 75 mls/hr IV ASDIR RAMY Stop: 09/10/17 23:41 Insulin Aspart (Novolog Vial Sliding Scale -) 1 vial SQ ACHS [facility]; Protocol Last Admin: 09/10/17 12:09 Dose: Not Given Insulin Detemir (Levemir Vial) 20 units SQ ACBK [facility] Last Admin: 09/10/17 10:25 Dose: Not Given Mycophenolate Mofetil (Cellcept -) 1,000 mg PO BID [facility] Last Admin: 09/10/17 10:24 Dose: 1,000 mg Tacrolimus (Prograf) 3 mg PO BID [facility] Last Admin: 09/10/17 10:25 Dose: 3 mg Laboratory Results - last 24 hr 09/09/17 09/09/17 09/09/17 17:35 18:00 18:00 WBC 16.2 H RBC 4.65 Hgb 11.9 Hct 35.1 L MCV 75.5 L MCH 25.5 L MCHC 33.8 RDW 15.0 Plt Count 272 D MPV 8.3 Absolute Neuts (auto) 12.7 Neutrophils % 78.6 Lymphocytes % 10.0 D Monocytes % 10.7 H Eosinophils % 0.5 Basophils % 0.2 Nucleated RBC % 0 Retic Count PT with INR 15.60 H INR 1.38 H D PTT (Actin FS) 31.4 Sodium Potassium Chloride Carbon Dioxide Anion Gap BUN Creatinine Creat Clearance w eGFR POC Glucometer Random Glucose Lactic Acid Calcium Ferritin Total Bilirubin AST ALT Alkaline Phosphatase Troponin I Total Protein Albumin Urine Color Ltyellow Urine Appearance Clear Urine pH 5.0 Ur Specific [place] 1.013 Urine Protein 3+ H Urine Glucose (UA) 3+ H Urine Ketones Negative Urine Blood 1+ H Urine Nitrite Negative Urine Bilirubin Negative Urine Urobilinogen Negative Ur Leukocyte Esterase Negative Urine WBC (Auto) 1 Urine RBC (Auto) 3 Ur Epithelial Cells Rare Blood Type Antibody Screen 09/09/17 09/09/17 09/09/17 18:00 18:00 18:00 WBC RBC Hgb Hct MCV MCH MCHC RDW Plt Count MPV Absolute Neuts (auto) Neutrophils % Lymphocytes % Monocytes % Eosinophils % Basophils % Nucleated RBC % Retic Count PT with INR INR PTT (Actin FS) Sodium 131 L Potassium 4.3 Chloride 97 L Carbon Dioxide 23 Anion Gap 11 BUN 32 H Creatinine 1.7 H Creat Clearance w eGFR 43.61 POC Glucometer Random Glucose 321 H* Lactic Acid 1.1 Calcium 9.6 Ferritin Total Bilirubin 0.5 AST 16 ALT 27 Alkaline Phosphatase 128 H Troponin I < 0.02 Total Protein 8.0 Albumin 3.5 Urine Color Urine Appearance Urine pH Ur Specific [place] Urine Protein Urine Glucose (UA) Urine Ketones Urine Blood Urine Nitrite Urine Bilirubin Urine Urobilinogen Ur Leukocyte Esterase Urine WBC (Auto) Urine RBC (Auto) Ur Epithelial Cells Blood Type Antibody Screen 09/09/17 09/10/1709/10/18 22:40 06:20 06:20 WBC RBC Hgb Hct MCV MCH MCHC RDW Plt Count MPV Absolute Neuts (auto) Neutrophils % Lymphocytes % Monocytes % Eosinophils % Basophils % Nucleated RBC % Retic Count 1.93 H PT with INR INR PTT (Actin FS) Sodium 130 L Potassium 4.4 Chloride 97 L Carbon Dioxide 21 Anion Gap 12 BUN 34 H Creatinine 1.6 H Creat Clearance w eGFR 46.77 POC Glucometer 318 Random Glucose 286 H Lactic Acid Calcium 8.6 Ferritin 454.2 H Total Bilirubin 0.6 AST 11 L D ALT 21 D Alkaline Phosphatase 109 D Troponin I Total Protein 7.0 Albumin 2.9 L Urine Color Urine Appearance Urine pH Ur Specific [place] Urine Protein Urine Glucose (UA) Urine Ketones Urine Blood Urine Nitrite Urine Bilirubin Urine Urobilinogen Ur Leukocyte Esterase Urine WBC (Auto) Urine RBC (Auto) Ur Epithelial Cells Blood Type Antibody Screen 09/10/17 09/10/17 09/10/17 06:20 06:24 09:30 WBC 14.8 H RBC 4.29 Hgb 11.2 L Hct 32.5 L MCV 75.6 L MCH 26.2 MCHC 34.6 RDW 15.0 Plt Count 233 MPV 8.1 Absolute Neuts (auto) 11.6 Neutrophils % 78.6 Lymphocytes % 9.2 Monocytes % 11.2 H Eosinophils % 0.8 Basophils % 0.2 Nucleated RBC % 0 Retic Count PT with INR INR PTT (Actin FS) Sodium Potassium Chloride Carbon Dioxide Anion Gap BUN Creatinine Creat Clearance w eGFR POC Glucometer 295 Random Glucose Lactic Acid Calcium Ferritin Total Bilirubin AST ALT Alkaline Phosphatase Troponin I Total Protein Albumin Urine Color Urine Appearance Urine pH Ur Specific [place] Urine Protein Urine Glucose (UA) Urine Ketones Urine Blood Urine Nitrite Urine Bilirubin Urine Urobilinogen Ur Leukocyte Esterase Urine WBC (Auto) Urine RBC (Auto) Ur Epithelial Cells Blood Type O POSITIVE Antibody Screen Negative 09/10/17 09/10/17 10:18 12:08 WBC RBC Hgb Hct MCV MCH MCHC RDW Plt Count MPV Absolute Neuts (auto) Neutrophils % Lymphocytes % Monocytes % Eosinophils % Basophils % Nucleated RBC % Retic Count PT with INR INR PTT (Actin FS) Sodium Potassium Chloride Carbon Dioxide Anion Gap BUN Creatinine Creat Clearance w eGFR POC Glucometer 310 Random Glucose Lactic Acid Calcium Ferritin Total Bilirubin AST ALT Alkaline Phosphatase Troponin I Total Protein Albumin Urine Color Urine Appearance Urine pH Ur Specific [place] Urine Protein Urine Glucose (UA) Urine Ketones Urine Blood Urine Nitrite Urine Bilirubin Urine Urobilinogen Ur Leukocyte Esterase Urine WBC (Auto) Urine RBC (Auto) Ur Epithelial Cells Blood Type O POSITIVE Antibody Screen ASSESSMENT AND PLAN: 47 yom with PMHx of Renal transplant on tacrolimus/Mycophenolate, IDDM, HTN, CKD stage II (baseline Cr around 1.4) admitted with left axiallary and right lower back skin abscesses with sepsis and TRAVIS. -Left axillary/Right lower back skin abscesses with abcess -TRAVIS, likely from poor oral intake and sepsis -IDDM -HTN -REnal transplant on immunosuppressants Plan: Surgery/ID input noted. Clindamycin/vancomycin renal dosing. For I&D/debridement today. Follow up blood/wound cultures. Gentle hydration. REnal input noted. Tacrolimus/Mycophenolate, continue per clinical course and renal recs. Continue atenolol. Hold losartan for now. DVTPPX with heparin, on hold for OR. Dispo pending clinical course. In 2-3 days if doing well and no concerns. Plan discussed with patient in detail, all questions answered.
--- NOTE | 2017-09-10 14:51 | CONS ---
DATE OF CONSULTATION: DATE OF DICTATION: 09/10/2017 HISTORY OF PRESENT ILLNESS: Patient is a 47-year-old male evaluated for soft tissue abscesses. He reports developing painful swelling on his right lower back and left axillary area that became progressively more erythematous, swollen and painful. He developed malodorous drainage and had experienced fever at home. He had been prescribed Levaquin for 5 days without significant improvement. He now presents with large soft tissue abscesses involving the right lower back and the left axilla. He was seen in consultation by Surgery and is scheduled for incision and drainage today. Patient has had subjective fever. Denies shaking chills. He is status post renal transplant and is on immunosuppressive therapy. He denies any recent history of serious soft tissue infection requiring hospitalization. Denies history of MRSA. PAST MEDICAL HISTORY: Positive for renal transplant 19 years ago, history of chronic kidney disease, his baseline creatinine is 1.4, insulin-dependent diabetes mellitus, obstructive sleep apnea, morbid obesity. ALLERGIES: CEPHALOSPORINS (hives). There is also a SULFA allergy listed; however, he reports that he was told to avoid SULFA in light of his chronic kidney disease. MEDICATIONS: Include tacrolimus and mycophenolate. He is not on prednisone. SOCIAL HISTORY: Lives at home. Nonsmoker. Nondrinker. No recent travel. No recent hospitalizations. LABORATORY DATA: White count 16,000, hematocrit 32.5, platelet count 233. Creatinine 1.6. Chest x-ray: Negative. SYSTEMS REVIEW:Neurologic: No loss of consciousness, seizure activity, focal weakness. Cardiac: Negative chest pain or palpitations. Respiratory: Negative cough or sputum production. Gastrointestinal: Negative vomiting or diarrhea. Genitourinary: Is status post renal transplant. PHYSICAL EXAMINATION: General: He is not acutely toxic appearing. Obese male. Vital Signs: Temperature 99.8, blood pressure 158/85, pulse 80, irregular, respirations 20 per minute, T-max 102.5. HEENT: Sclerae are anicteric. Cardiac: Heart sounds S1, S2. Lungs: Clear. Abdomen: Obese, soft, nontender. Extremities: Edema 1+. Skin: Examination of the right flank: There is a large indurated erythematous area approximately 5 to 6 cm in diameter which is tender. There is no expressible pus. Examination of the left axilla: There is fluctuant swelling approximately 5 to 6 cm in diameter in the left axilla. It is tender to touch. Erythematous. There is no expressible pus. IMPRESSION: 1. Soft tissue abscesses. 2. Fever, leukocytosis, possible sepsis secondary to skin source. 3. Status post renal transplant, on immunosuppressive therapy. 4. Azotemia. RECOMMENDATIONS: Await culture results. Patient is for the operating room for incision and drainage today. Will re-dose vancomycin for coverage of skin pathogens including possible MRSA. Repeat vancomycin level in a.m. and re-dose accordingly. Will follow. Thank you for the kind referral. CLEVE ROWLAND M.D. [id number]
--- NOTE | 2017-09-10 18:12 | PN ---
Physical Exam: SUBJECTIVE: Patient seen and examined this morning at bedside. Has had some fevers recently. Denies chest pain, SOB, Nausea, vomiting, diarrhea, constipation. OBJECTIVE: Vital Signs Period Temp Pulse Resp BP Sys/Pena Pulse Ox Last 24 Hr 98.4 F-102.5 F 87-125 18-20 121-153/66-90 96-97 GENERAL: The patient is awake, alert, and fully oriented, in no acute distress. THROAT: Oropharynx clear without exudates, moist mucous membranes. LUNGS: Breath sounds equal, clear to auscultation bilaterally, no wheezes, no crackles HEART: Regular rate and rhythm, S1, S2 without murmur, rub or gallop. ABDOMEN: Soft, nontender, nondistended, normoactive bowel sounds, no guarding, no rebound EXTREMITIES: no edema. SKIN: Mass present in Left axilla, warm, fluctuant, actively draining purulent discharge, surrounding erythema covered with gauze and tape. Similar 2nd mass present over right lower back Laboratory Results - last 24 hr 09/09/17 09/09/17 09/09/17 18:00 18:00 18:00 WBC 16.2 H RBC 4.65 Hgb 11.9 Hct 35.1 L MCV 75.5 L MCH 25.5 L MCHC 33.8 RDW 15.0 Plt Count 272 D MPV 8.3 Absolute Neuts (auto) 12.7 Neutrophils % 78.6 Lymphocytes % 10.0 D Monocytes % 10.7 H Eosinophils % 0.5 Basophils % 0.2 Nucleated RBC % 0 Retic Count PT with INR 15.60 H INR 1.38 H D PTT (Actin FS) 31.4 Sodium 131 L Potassium 4.3 Chloride 97 L Carbon Dioxide 23 Anion Gap 11 BUN 32 H Creatinine 1.7 H Creat Clearance w eGFR 43.61 POC Glucometer Random Glucose 321 H* Lactic Acid Calcium 9.6 Ferritin Total Bilirubin 0.5 AST 16 ALT 27 Alkaline Phosphatase 128 H Troponin I Total Protein 8.0 Albumin 3.5 Blood Type Antibody Screen 09/09/17 09/09/17 09/09/17 18:00 18:00 22:40 WBC RBC Hgb Hct MCV MCH MCHC RDW Plt Count MPV Absolute Neuts (auto) Neutrophils % Lymphocytes % Monocytes % Eosinophils % Basophils % Nucleated RBC % Retic Count PT with INR INR PTT (Actin FS) Sodium Potassium Chloride Carbon Dioxide Anion Gap BUN Creatinine Creat Clearance w eGFR POC Glucometer 318 Random Glucose Lactic Acid 1.1 Calcium Ferritin Total Bilirubin AST ALT Alkaline Phosphatase Troponin I < 0.02 Total Protein Albumin Blood Type Antibody Screen 09/10/17 09/10/17 09/10/17 06:20 06:20 06:20 WBC 14.8 H RBC 4.29 Hgb 11.2 L Hct 32.5 L MCV 75.6 L MCH 26.2 MCHC 34.6 RDW 15.0 Plt Count 233 MPV 8.1 Absolute Neuts (auto) 11.6 Neutrophils % 78.6 Lymphocytes % 9.2 Monocytes % 11.2 H Eosinophils % 0.8 Basophils % 0.2 Nucleated RBC % 0 Retic Count 1.93 H PT with INR INR PTT (Actin FS) Sodium 130 L Potassium 4.4 Chloride 97 L Carbon Dioxide 21 Anion Gap 12 BUN 34 H Creatinine 1.6 H Creat Clearance w eGFR 46.77 POC Glucometer Random Glucose 286 H Lactic Acid Calcium 8.6 Ferritin 454.2 H Total Bilirubin 0.6 AST 11 L D ALT 21 D Alkaline Phosphatase 109 D Troponin I Total Protein 7.0 Albumin 2.9 L Blood Type Antibody Screen 09/10/17 09/10/17 09/10/17 06:24 09:30 10:18 WBC RBC Hgb Hct MCV MCH MCHC RDW Plt Count MPV Absolute Neuts (auto) Neutrophils % Lymphocytes % Monocytes % Eosinophils % Basophils % Nucleated RBC % Retic Count PT with INR INR PTT (Actin FS) Sodium Potassium Chloride Carbon Dioxide Anion Gap BUN Creatinine Creat Clearance w eGFR POC Glucometer 295 Random Glucose Lactic Acid Calcium Ferritin Total Bilirubin AST ALT Alkaline Phosphatase Troponin I Total Protein Albumin Blood Type O POSITIVE O POSITIVE Antibody Screen Negative 09/10/17 09/10/17 12:08 17:23 WBC RBC Hgb Hct MCV MCH MCHC RDW Plt Count MPV Absolute Neuts (auto) Neutrophils % Lymphocytes % Monocytes % Eosinophils % Basophils % Nucleated RBC % Retic Count PT with INR INR PTT (Actin FS) Sodium Potassium Chloride Carbon Dioxide Anion Gap BUN Creatinine Creat Clearance w eGFR POC Glucometer 310 333 Random Glucose Lactic Acid Calcium Ferritin Total Bilirubin AST ALT Alkaline Phosphatase Troponin I Total Protein Albumin Blood Type Antibody Screen Active Medications Acetaminophen (Tylenol -) 650 mg PO Q6H PRN PRN Reason: PAIN 7-10 Albuterol Sulfate (Ventolin Hfa Inhaler -) 2 puff IH Q6H PRN PRN Reason: SHORTNESS OF BREATH Aspirin (Asa -) 81 mg PO DAILY [facility] Atenolol (Tenormin -) 25 mg PO DAILY [facility] Atorvastatin Calcium (Lipitor -) 40 mg PO HS [facility] Last Admin: 09/10/17 22:49 Dose: 40 mg Fentanyl (Sublimaze Injection -) 50 mcg IVPUSH [id number] PRN PRN Reason: PAIN-PACU ORDER X 4 DOSES ONLY Heparin Sodium (Porcine) (Heparin -) 5,000 unit SQ TID [facility] Clindamycin Phosphate (Cleocin 600 Mg Premix Ivpb -) 600 mg in 50 mls @ 100 mls /hr IVPB Q6H-IV [facility]; Protocol Last Admin: 09/11/17 02:35 Dose: 100 mls/hr Lactated Ringer's (Lactated Ringers Solution) 1,000 mls @ 75 mls/hr IV ASDIR [facility] Last Admin: 09/10/17 22:49 Dose: Not Given Insulin Aspart (Novolog Vial Sliding Scale -) 1 vial SQ ACHS [facility]; Protocol Last Admin: 09/11/17 06:31 Dose: 12 unit Insulin Detemir (Levemir Vial) 20 units SQ ACBK [facility] Last Admin: 09/11/17 06:31 Dose: 20 unit Mycophenolate Mofetil (Cellcept -) 1,000 mg PO BID [facility] Last Admin: 09/10/17 22:49 Dose: 1,000 mg Ondansetron HCl (Zofran Injection) 4 mg IVPUSH Q6H PRN PRN Reason: NAUSEA AND/OR VOMITING Oxycodone HCl (Roxicodone -) 10 mg PO Q6H PRN PRN Reason: PAIN 7-10 Tacrolimus (Prograf) 3 mg PO BID [facility] Last Admin: 09/10/17 22:49 Dose: 3 mg ASSESSMENT/PLAN: 47 y/o m with PMHx of right renal transplant (on tacrolimus/Mycophenolate), CKD stage II, IDDM, HTN admitted for left axiallary and right lower back skin abscesses 1. Multiple Skin Abscesses - Left axilla, right lower back with Active purulent drainage - ID consult, Appreciate recommendations, Vancomycin started with renal dosing, Clindamycin continued - Surgical consult, appreciate rec's, I&D with debridement later today, NPO after breakfast - Pending Cultures - Pain control with Tylenol, Fentanyl, Oxycodone - Hydration via Lactated Ringers Solution @ 75 mls/hr IV 2. S/P renal transplant - Cr at baseline 1.4, Today around 1.7 - Restart home dose tacrolimus, mcophenolate - Nephrology consult: continue IVF at 75cc per hour, continue Tacrolimus and Cellcept at home dose, Continue vanco dosed by levels, continue Atenolol - Trend Cr - Home dose Losartan held 3. Microcytic anemia - Iron studies pending - Stool guiac 4. IDDM - Home medications held - ISS, BGM 5. PPx - DVT: Heparin 5000u subq TID, Held for I&D 6. FEN - IVF - Replete as needed - Renal diet Visit type - Emergency Visit Emergency Visit: Yes ED Registration Date: 09/09/17 Care time: The patient presented to the Emergency Department on the above date and was hospitalized for further evaluation of their emergent condition. - New Patient This patient is new to me today: Yes Date on this admission: 09/11/17 - Critical Care Critical Care patient: No
[2017-09-10] MEDS ORDERED: ONDANSETRON 4 MG/2 ML VIAL IVPUSH PRN ×2 (18:18→20:06)
[2017-09-10] MEDS ORDERED: LACTATED RINGERS SOLUTION 1,000 ML IV SCH ×2 (18:30→20:06)
[2017-09-10] MEDS ORDERED: MIDAZOLAM HCL 2 MG/2 ML SINGLE DOSE VIAL ONE (18:33)
[2017-09-10] MEDS ORDERED: PROPOFOL 20 ML ONE ×2 (18:37→18:44)
[2017-09-10] MEDS ORDERED: SUCCINYLCHOLINE CHLORIDE 200 MG/10 ML VIAL ONE (18:40)
[2017-09-10] MEDS ORDERED: DEXAMETHASONE SOD PHOSPHATE 4 MG/1 ML VIAL ONE (18:50)
[2017-09-10] MEDS ORDERED: KETAMINE HCL 200 MG/20 ML VIAL ONE (19:14)
--- NOTE | 2017-09-10 19:29 | OP ---
Operative Note - Note: Operative Date: 09/10/17 Pre-Operative Diagnosis: ABSSSI left axilla and right lower back Operation: incision and drainage ABSSSI left axilla and right lower back Findings: as above Surgeon: Margarito Hough Anesthesia: General Estimated Blood Loss (mls): 10 Drains & Tubes with Location: 1/2" iodoform packing
[2017-09-10] MEDS ORDERED: oxyCODONE HCL 5 MG TABLET PO PRN (19:40)
[2017-09-10] MEDS ORDERED: ACETAMINOPHEN 1000 MG/100 ML VIAL (NON FORMULARY) IVPB ONE (19:53)
[2017-09-10] MEDS ORDERED: ALBUTEROL SO4 8 GM HFA INHALER IH PRN (20:06)
[2017-09-10] MEDS ORDERED: ACETAMINOPHEN INJECTION 100 ML IVPB ONE (20:08)
[2017-09-10] MEDS ORDERED: CLINDAMYCIN PHOSPHATE 600 MG/4 ML VIAL ONE (20:09)
[2017-09-10] MEDS: ATORVASTATIN CA 40 MG TABLET (FP) PO SCH (22:49)
[2017-09-11] MEDS: CLINDAMYCIN 600MG PREMIX IVPB 600 MG/50 ML BAG IVPB SCH ×4 (02:35→21:26)
[2017-09-11] MEDS: INSULIN SLIDING SCALE (NOVOLOG) 1 VIAL SQ SCH ×4 (06:31→21:28)
[2017-09-11] MEDS ORDERED: INSULIN (LEVEMIR) 100 UNITS/ML UNITS SQ SCH (07:00)
[2017-09-11] MEDS ORDERED: INSULIN (NOVOLOG) ASPART 100 UNITS/ML 10ML VIAL ONE ×2 (07:07→18:05)
[2017-09-11 07:58] LABS: BASO % 0.2 % (0-2.0); EOS % 0.1 % (0-4.5); HEMATOCRIT 29.6 % (35.4-49); HEMOGLOBIN 10.2 GM/dL (11.7-16.9); LYMPH % 7.2 % (8-40); MCH 26.1 pg (25.7-33.7); MCHC 34.3 g/dl (32.0-35.9); MEAN CELL VOLUME 76.1 fl (80-96); MEAN PLT VOLUME 8.1 fl (7.5-11.1); MONO % 9.1 % (3.8-10.2); NEUT % 83.4 % (42.8-82.8); PLATELET COUNT 223 K/MM3 (134-434); RBC 3.88 M/mm3 (4.00-5.60); RDW 14.6 % (11.9-15.9); WHITE BLOOD COUNT 11.7 K/mm3 (4.0-10.0)
[2017-09-11 08:08] LABS: SERUM IRON SATURATION 8 % (15-55); TOTAL IRON BINDING CAPACITY 248 ug/dL (250-450); UIBC 228 ug/dL (111-343)
[2017-09-11 08:30] LABS: ANION GAP 12 (8-16); BLOOD UREA NITROGEN 41 mg/dL (7-18); CALCIUM 8.7 mg/dL (8.5-10.1); CHLORIDE 100 mmol/L (98-107); CO2 21 mmol/L (21-32); CREATININE 1.7 mg/dL (0.7-1.3); MAGNESIUM 1.9 mg/dL (1.8-2.4); PHOSPHOROUS 4.6 mg/dL (2.5-4.9); POTASSIUM 4.9 mmol/L (3.5-5.1); SODIUM 133 mmol/L (136-145)
[2017-09-11 08:33] LABS: GLUCOSE,RANDOM 348 mg/dL (74-106)
--- NOTE | 2017-09-11 09:16 | PN ---
Progress Note (short form) - Note Progress Note: Post op nday#1.s/p I& D of L axilla and back abscess under Gauneventful.Patient stable.No any anesthesia related problem.Patient Dc from the anesthesia care.
[2017-09-11] MEDS ORDERED: INSULIN (LEVEMIR) 100 UNITS/ML UNITS SQ ONE ×2 (09:30→18:05)
[2017-09-11] MEDS: ATENOLOL 25 MG TABLET (FP) PO SCH (10:07)
[2017-09-11] MEDS: ASPIRIN 81 MG CHEWABLE TABLETS PO SCH (10:07)
[2017-09-11] MEDS: MYCOPHENOLATE MOFETIL 500 MG TABLET PO SCH ×2 (10:08→21:27)
[2017-09-11] MEDS: TACROLIMUS ANHYDROUS 1 MG CAPSULE PO SCH ×2 (10:09→21:27)
--- NOTE | 2017-09-11 11:15 | PN ---
Physical Exam: SUBJECTIVE: Patient seen and examined. Had I&D yesterday. No fevers overnight. Pain appears controlled off pain meds. Tolerating PO better OBJECTIVE: Vital Signs Period Temp Pulse Resp BP Sys/Pena Pulse Ox Last 24 Hr 97.8 F-99.9 F 75-97 11-21 102-144/62-90 94-99 GENERAL: The patient is awake, alert, and fully oriented, in no acute respiratory or painful distress. LUNGS: Breath sounds equal, clear to auscultation bilaterally HEART: Regular rate and rhythm, S1, S2 ABDOMEN: Soft, nontender, obese, normoactive bowel sounds, no guarding, no rebound, no hepatosplenomegaly, no masses. EXTREMITIES: no edema. NEUROLOGICAL: AAOx3. Moves all limbs SKIN: Laxillary packing in place, minimal drainage, Lower back dressing/packing in place with minimal drainage CBC, BMP 09/11/17 06:50 09/11/17 06:50 Laboratory Results - last 24 hr 09/10/17 09/10/17 09/10/17 06:20 12:08 17:23 WBC RBC Hgb Hct MCV MCH MCHC RDW Plt Count MPV Absolute Neuts (auto) Neutrophils % Lymphocytes % Monocytes % Eosinophils % Basophils % Nucleated RBC % Sodium Potassium Chloride Carbon Dioxide Anion Gap BUN Creatinine Creat Clearance w eGFR POC Glucometer 310 333 Random Glucose Calcium Phosphorus Magnesium Iron 20 L TIBC 248 L Iron Saturation 8 L Transferrin 183 L 09/11/17 09/11/17 09/11/17 00:54 06:29 06:50 WBC 11.7 H RBC 3.88 L Hgb 10.2 L Hct 29.6 L MCV 76.1 L MCH 26.1 MCHC 34.3 RDW 14.6 Plt Count 223 MPV 8.1 Absolute Neuts (auto) 9.7 Neutrophils % 83.4 H Lymphocytes % 7.2 L D Monocytes % 9.1 Eosinophils % 0.1 D Basophils % 0.2 Nucleated RBC % 0 Sodium Potassium Chloride Carbon Dioxide Anion Gap BUN Creatinine Creat Clearance w eGFR POC Glucometer 399 376 Random Glucose Calcium Phosphorus Magnesium Iron TIBC Iron Saturation Transferrin 09/11/17 06:50 WBC RBC Hgb Hct MCV MCH MCHC RDW Plt Count MPV Absolute Neuts (auto) Neutrophils % Lymphocytes % Monocytes % Eosinophils % Basophils % Nucleated RBC % Sodium 133 L Potassium 4.9 Chloride 100 Carbon Dioxide 21 Anion Gap 12 BUN 41 H Creatinine 1.7 H Creat Clearance w eGFR 43.61 POC Glucometer Random Glucose 348 H* D Calcium 8.7 Phosphorus 4.6 Magnesium 1.9 Iron TIBC Iron Saturation Transferrin Active Medications Generic Name Dose Route Start Last Admin Trade Name Freq PRN Reason Stop Dose Admin Acetaminophen 650 mg 09/10/17 19:40 Tylenol - PO Q6H PRN PAIN 7-10 Albuterol Sulfate 2 puff 09/10/17 20:06 Ventolin Hfa Inhaler - IH Q6H PRN SHORTNESS OF BREATH Aspirin 81 mg 09/11/17 10:00 09/11/17 10:07 Asa - PO 81 mg DAILY [facility] Administration Atenolol 25 mg 09/11/17 10:00 09/11/17 10:07 Tenormin - PO 25 mg DAILY [facility] Administration Atorvastatin Calcium 40 mg 09/10/17 22:00 09/10/17 22:49 Lipitor - PO 40 mg HS [facility] Administration Fentanyl 50 mcg 09/10/17 20:06 Sublimaze Injection - IVPUSH [id number] PRN PAIN-PACU ORDER X 4 DOSES ONLY Heparin Sodium (Porcine) 5,000 unit 09/10/17 22:00 Heparin - SQ TID [facility] Clindamycin Phosphate 600 mg in 50 mls @ 100 mls/hr 09/10/17 21:00 09/11/17 10:07 Cleocin 600 Mg Premix Ivpb - IVPB 100 mls/hr Q6H-IV [facility] Administration Protocol Lactated Ringer's 1,000 mls @ 75 mls/hr 09/10/17 20:06 09/10/17 22:49 Lactated Ringers Solution IV Not Given ASDIR [facility] Insulin Aspart 1 vial 09/10/17 22:00 09/11/17 06:31 Novolog Vial Sliding Scale - SQ 12 unit ACHS [facility] Administration Protocol Insulin Detemir 30 units 09/12/17 07:00 Levemir Vial SQ ACBK [facility] Mycophenolate Mofetil 1,000 mg 09/10/17 22:00 09/11/17 10:08 Cellcept - PO 1,000 mg BID [facility] Administration Ondansetron HCl 4 mg 09/10/17 20:06 Zofran Injection IVPUSH Q6H PRN NAUSEA AND/OR VOMITING Oxycodone HCl 10 mg 09/10/17 19:40 Roxicodone - PO Q6H PRN PAIN 7-10 Tacrolimus 3 mg 09/10/17 22:00 09/11/17 10:09 Prograf PO 3 mg BID [facility] Administration ASSESSMENT/PLAN: 47 y/o m with PMHx of right renal transplant (on tacrolimus/Mycophenolate), CKD stage II, IDDM, HTN admitted for left axillary and right lower back abscesses now s/p I&D for abscesses (09/10/17) Skin Abscesses s/p I&D (09/10/17) Now found to have presumptive MRSA in wound Contact isolation Vancolevel stat Redose vanc per ID if <15 at 1250mg I&D packing of L axilla and lower back in place, will follow per sx Cont Clindamycin -day 2 Pain meds on board as needed- per pt pain is reduced post I&D iv Lactated Ringers Solution @ 75 mls/hr IV pending nephro recs- Cr- same at 1.7 S/P renal transplant Cr at baseline 1.4, now 1.7 Cont tacrolimus, mycophenolate Per nephro room to dc Cellcept if septic, otherwise cont with tacrolimus and atenolol Hold losartan BMP Microcytic anemia Iron studies-ACD Monitor IDDM Glu running in 300s Now on levemir 30U Cont ISS, BGM PPx DVT: Heparin 5000u subq TID FEN IVF per renal Monitor lytes, replete as needed Renal diet Dispo: May need VNS for wound care /dressing changes Visit type - Emergency Visit Emergency Visit: Yes ED Registration Date: 09/09/17 Care time: The patient presented to the Emergency Department on the above date and was hospitalized for further evaluation of their emergent condition. - New Patient This patient is new to me today: No - Critical Care Critical Care patient: No - Discharge Referral Referred to [facility] Med P.C.: No
--- NOTE | 2017-09-11 11:44 | PN ---
Teaching Attending Note Name of Resident: Ileana Diaz ATTENDING PHYSICIAN STATEMENT I saw and evaluated the patient. I reviewed the resident's note and discussed the case with the resident. I agree with the resident's findings and plan as documented with exceptions below. SUBJECTIVE: Patient seen and examined, feels better, improved appetite some pain in axilla and left back but improved. OBJECTIVE: Vital Signs Period Temp Pulse Resp BP Sys/Pena Pulse Ox Last 24 Hr 97.8 F-99.9 F 75-97 11-21 102-144/62-90 94-99 Intake & Output 09/08/17 09/09/17 09/10/17 09/11/17 23:59 23:59 23:59 23:59 Intake Total 600 1875 815 Output Total 0 Balance 600 1875 815 Weight 228 lb 6.4 oz 228 lb General: sitting in bed having breakfast Extremities: left axilla, dressing, packing with improved induration/erythema around the packing site, Right lower back dressing with packing and improved erythema/induration, some tenderness present Chest: CTAB, no rales or wheezing Extremities: no edema Active Medications Acetaminophen (Tylenol -) 650 mg PO Q6H PRN PRN Reason: PAIN 7-10 Albuterol Sulfate (Ventolin Hfa Inhaler -) 2 puff IH Q6H PRN PRN Reason: SHORTNESS OF BREATH Aspirin (Asa -) 81 mg PO DAILY [facility] Last Admin: 09/11/17 10:07 Dose: 81 mg Atenolol (Tenormin -) 25 mg PO DAILY [facility] Last Admin: 09/11/17 10:07 Dose: 25 mg Atorvastatin Calcium (Lipitor -) 40 mg PO HS [facility] Last Admin: 09/10/17 22:49 Dose: 40 mg Fentanyl (Sublimaze Injection -) 50 mcg IVPUSH [id number] PRN PRN Reason: PAIN-PACU ORDER X 4 DOSES ONLY Heparin Sodium (Porcine) (Heparin -) 5,000 unit SQ TID [facility] Clindamycin Phosphate (Cleocin 600 Mg Premix Ivpb -) 600 mg in 50 mls @ 100 mls /hr IVPB Q6H-IV [facility]; Protocol Last Admin: 09/11/17 10:07 Dose: 100 mls/hr Lactated Ringer's (Lactated Ringers Solution) 1,000 mls @ 75 mls/hr IV ASDIR [facility] Last Admin: 09/10/17 22:49 Dose: Not Given Insulin Aspart (Novolog Vial Sliding Scale -) 1 vial SQ ACHS [facility]; Protocol Last Admin: 09/11/17 06:31 Dose: 12 unit Insulin Detemir (Levemir Vial) 30 units SQ ACBK [facility] Mycophenolate Mofetil (Cellcept -) 1,000 mg PO BID [facility] Last Admin: 09/11/17 10:08 Dose: 1,000 mg Ondansetron HCl (Zofran Injection) 4 mg IVPUSH Q6H PRN PRN Reason: NAUSEA AND/OR VOMITING Oxycodone HCl (Roxicodone -) 10 mg PO Q6H PRN PRN Reason: PAIN 7-10 Tacrolimus (Prograf) 3 mg PO BID [facility] Last Admin: 09/11/17 10:09 Dose: 3 mg Laboratory Results - last 24 hr 09/10/17 09/10/17 09/10/17 06:20 12:08 17:23 WBC RBC Hgb Hct MCV MCH MCHC RDW Plt Count MPV Absolute Neuts (auto) Neutrophils % Lymphocytes % Monocytes % Eosinophils % Basophils % Nucleated RBC % Sodium Potassium Chloride Carbon Dioxide Anion Gap BUN Creatinine Creat Clearance w eGFR POC Glucometer 310 333 Random Glucose Calcium Phosphorus Magnesium Iron 20 L TIBC 248 L Iron Saturation 8 L Transferrin 183 L 09/11/17 09/11/17 09/11/17 00:54 06:29 06:50 WBC 11.7 H RBC 3.88 L Hgb 10.2 L Hct 29.6 L MCV 76.1 L MCH 26.1 MCHC 34.3 RDW 14.6 Plt Count 223 MPV 8.1 Absolute Neuts (auto) 9.7 Neutrophils % 83.4 H Lymphocytes % 7.2 L D Monocytes % 9.1 Eosinophils % 0.1 D Basophils % 0.2 Nucleated RBC % 0 Sodium Potassium Chloride Carbon Dioxide Anion Gap BUN Creatinine Creat Clearance w eGFR POC Glucometer 399 376 Random Glucose Calcium Phosphorus Magnesium Iron TIBC Iron Saturation Transferrin 09/11/17 09/11/17 06:50 11:19 WBC RBC Hgb Hct MCV MCH MCHC RDW Plt Count MPV Absolute Neuts (auto) Neutrophils % Lymphocytes % Monocytes % Eosinophils % Basophils % Nucleated RBC % Sodium 133 L Potassium 4.9 Chloride 100 Carbon Dioxide 21 Anion Gap 12 BUN 41 H Creatinine 1.7 H Creat Clearance w eGFR 43.61 POC Glucometer 391 Random Glucose 348 H* D Calcium 8.7 Phosphorus 4.6 Magnesium 1.9 Iron TIBC Iron Saturation Transferrin Microbiology 09/09/17 19:44 Abscess Gram Stain - Final 09/09/17 19:44 Abscess Wound Culture - Preliminary Presumptive Mrsa (Pbp2a Pos) 09/09/17 17:35 Urine - Urine Clean Catch Urine Culture - Final NO GROWTH OBTAINED 09/09/17 18:10 Blood - Peripheral Venous Blood Culture - Preliminary NO GROWTH OBTAINED AFTER 24 HOURS, INCUBATION TO CONTINUE FOR 4 DAYS. 09/09/17 18:00 Blood - Peripheral Venous Blood Culture - Preliminary NO GROWTH OBTAINED AFTER 24 HOURS, INCUBATION TO CONTINUE FOR 4 DAYS. ASSESSMENT AND PLAN: 47 yom with PMHx of Renal transplant on tacrolimus/Mycophenolate, IDDM, HTN, CKD stage II (baseline Cr around 1.4) admitted with left axiallary and right lower back skin abscesses with sepsis and TRAVIS. -Left axillary/Right lower back skin abscesses with sepsis s/p I&D 09/10 -TRAVIS, likely from poor oral intake and sepsis -Hypovolumic hyponatremia -IDDM -HTN -REnal transplant on immunosuppressants Plan: Surgery/ID input noted. Clindamycin/ day 2. Check Vanco levels, dosing accordingly. Follow up blood/wound cultures. Follow up surgery/wound care instructions. Gentle hydration. REnal input noted. Tacrolimus/Mycophenolate, continue per clinical course and renal recs. Continue atenolol. Hold losartan for now. DVTPPX with heparin Dispo pending clinical course,anticipate VNS for wound care /dressing changes in 2-3 days if doing well and no concerns. Plan discussed with patient in detail, all questions answered.
--- NOTE | 2017-09-11 12:52 | PN ---
Progress Note, Physician History of Present Illness: S/P I&D soft tissue abscesses No c/o pain Temps down Afebrile Vancomycin level pending - Current Medication List Current Medications: Active Medications Acetaminophen (Tylenol -) 650 mg PO Q6H PRN PRN Reason: PAIN 7-10 Albuterol Sulfate (Ventolin Hfa Inhaler -) 2 puff IH Q6H PRN PRN Reason: SHORTNESS OF BREATH Aspirin (Asa -) 81 mg PO DAILY [facility] Last Admin: 09/11/17 10:07 Dose: 81 mg Atenolol (Tenormin -) 25 mg PO DAILY [facility] Last Admin: 09/11/17 10:07 Dose: 25 mg Atorvastatin Calcium (Lipitor -) 40 mg PO HS [facility] Last Admin: 09/10/17 22:49 Dose: 40 mg Heparin Sodium (Porcine) (Heparin -) 5,000 unit SQ TID [facility] Clindamycin Phosphate (Cleocin 600 Mg Premix Ivpb -) 600 mg in 50 mls @ 100 mls /hr IVPB Q6H-IV [facility]; Protocol Last Admin: 09/11/17 10:07 Dose: 100 mls/hr Sodium Chloride (Normal Saline -) 1,000 mls @ 75 mls/hr IV ASDIR [facility] Insulin Aspart (Novolog Vial Sliding Scale -) 1 vial SQ ACHS [facility]; Protocol Last Admin: 09/11/17 06:31 Dose: 12 unit Insulin Detemir (Levemir Vial) 30 units SQ ACBK [facility] Mycophenolate Mofetil (Cellcept -) 1,000 mg PO BID [facility] Last Admin: 09/11/17 10:08 Dose: 1,000 mg Ondansetron HCl (Zofran Injection) 4 mg IVPUSH Q6H PRN PRN Reason: NAUSEA AND/OR VOMITING Oxycodone HCl (Roxicodone -) 10 mg PO Q6H PRN PRN Reason: PAIN 7-10 Sertraline HCl (Zoloft -) 200 mg PO DAILY [facility] Tacrolimus (Prograf) 3 mg PO BID [facility] Last Admin: 09/11/17 10:09 Dose: 3 mg Tamsulosin HCl (Flomax -) 0.4 mg PO DAILY@0830 [facility] - Objective Vital Signs: Vital Signs Temperature 97.8 F 09/11/17 09:54 Pulse Rate 93 H 09/11/17 09:54 Respiratory Rate 16 07/21/18 09:54 Blood Pressure 108/62 09/11/17 09:54 O2 Sat by Pulse Oximetry (%) 99 09/10/17 21:00 Constitutional: Yes: No Distress, Obese Eyes: Yes: Conjunctiva Clear Cardiovascular: Yes: Regular Rate and Rhythm, S1, S2 Respiratory: Yes: CTA Bilaterally Gastrointestinal: Yes: Normal Bowel Sounds, Soft. No: Tenderness Integumentary: Yes: Other (surgical dressings in place) Labs: CBC, BMP 09/11/17 06:50 09/11/17 06:50 INR, PTT INR 1.38 (0.82-1.09) H D 09/09/17 18:00 Assessment/Plan POD #1 I&D soft tissue abscesses S/P renal transplant on immunosuppressive therapy Azotemia Fever/ leukocytosis- improved Wound c/s presumptive MRSA Check vancomycin level Redose 1250mg for level < 15
[2017-09-11] MEDS: SERTRALINE HCL 50 MG TABLET (FP) PO SCH (13:50)
[2017-09-11] MEDS: SODIUM CHLORIDE 1,000 ML IV SCH (13:50)
[2017-09-11] MEDS: HEPARIN NA (PORCINE) 5,000 UNITS/ML 1ML VIAL SQ SCH ×2 (13:51→21:27)
--- NOTE | 2017-09-11 14:03 | PN ---
Progress Note (short form) - Note Progress Note: POD#1 Pt states that he isn't having any pain today. Vital Signs Period Temp Pulse Resp BP Sys/Pena Pulse Ox Last 24 Hr 97.8 F-99.9 F 75-97 11-21 102-144/62-90 94-99 GEN: Appears comfortable Left axillary region: packing removed/no purulent drainage. Irrigated with 10 cc NS and repacked with iodoform 1/2 in. No cellulitis or induration noted. Right back/flank: packing removed/no purulent drainage. Irrigated with 10 cc NS and repacked with iodoform 1/2 in. The area remain indurated. CBC, BMP 09/11/17 06:50 09/11/17 06:50 Microbiology 09/09/17 19:44 Abscess Gram Stain - Final 09/09/17 19:44 Abscess Wound Culture - Preliminary Presumptive Mrsa (Pbp2a Pos) A/P: 47 yo male s/p Left axillary and flank incision and drainage IV abx as per ID f/u cultures Plan for packing removal in the am, pt may shower and then repack wounds pain medication as needed Insulin control, getting sliding scale dose D/w Dr. Hough and agrees with the patients care
[2017-09-11] MEDS ORDERED: VANCOMYCIN 1,250 MG in DEXTROSE 5%-WATER - 250 ML IVPB ONE (15:00)
--- NOTE | 2017-09-11 15:23 | PN ---
Progress Note (short form) - Note Progress Note: Renal follow up for Renal Transplant Pt seen and examined at the bedside awake and alert no acute complaints making urine no fevers Vital Signs Temperature 97.9 F 09/11/17 13:24 Pulse Rate 84 09/11/17 13:24 Respiratory Rate 18 09/11/17 13:24 Blood Pressure 135/79 09/11/17 13:24 O2 Sat by Pulse Oximetry (%) 99 09/10/17 21:00 Intake & Output 09/08/17 09/09/17 09/10/17 09/11/17 23:59 23:59 23:59 23:59 Intake Total 600 1875 815 Output Total 0 Balance 600 1875 815 Weight 103.6 kg 103.419 kg NAD MMM RRR CTA Trace edema in LE CBC, BMP 09/11/17 06:50 09/11/17 06:50 Current Medications Acetaminophen (Tylenol -) 650 mg PO Q6H PRN PRN Reason: PAIN 7-10 Albuterol Sulfate (Ventolin Hfa Inhaler -) 2 puff IH Q6H PRN PRN Reason: SHORTNESS OF BREATH Aspirin (Asa -) 81 mg PO DAILY RAMY Last Admin: 09/11/17 10:07 Dose: 81 mg Atenolol (Tenormin -) 25 mg PO DAILY RAMY Last Admin: 09/11/17 10:07 Dose: 25 mg Atorvastatin Calcium (Lipitor -) 40 mg PO HS RAMY Last Admin: 09/10/17 22:49 Dose: 40 mg Heparin Sodium (Porcine) (Heparin -) 5,000 unit SQ TID RAMY Last Admin: 09/11/17 13:51 Dose: 5,000 unit Clindamycin Phosphate (Cleocin 600 Mg Premix Ivpb -) 600 mg in 50 mls @ 100 mls /hr IVPB Q6H-IV RAMY; Protocol Last Admin: 09/11/17 15:05 Dose: 100 mls/hr Sodium Chloride (Normal Saline -) 1,000 mls @ 75 mls/hr IV ASDIR RAMY Last Admin: 09/11/17 13:50 Dose: Not Given Vancomycin HCl 1,250 mg/ (Dextrose) 250 mls @ 250 mls/2 hr IVPB ONCE ONE; Protocol Stop: 09/11/17 16:59 Insulin Aspart (Novolog Vial Sliding Scale -) 1 vial SQ ACHS RAMY; Protocol Last Admin: 09/11/17 13:49 Dose: 12 unit Insulin Detemir (Levemir Vial) 30 units SQ ACBK [facility] Mycophenolate Mofetil (Cellcept -) 1,000 mg PO BID [facility] Last Admin: 09/11/17 10:08 Dose: 1,000 mg Ondansetron HCl (Zofran Injection) 4 mg IVPUSH Q6H PRN PRN Reason: NAUSEA AND/OR VOMITING Oxycodone HCl (Roxicodone -) 10 mg PO Q6H PRN PRN Reason: PAIN 7-10 Sertraline HCl (Zoloft -) 200 mg PO DAILY [facility] Last Admin: 09/11/17 13:50 Dose: 200 mg Tacrolimus (Prograf) 3 mg PO BID [facility] Last Admin: 09/11/17 10:09 Dose: 3 mg Tamsulosin HCl (Flomax -) 0.4 mg PO DAILY@0830 [facility] 47 year old gentleman with PMhx of ESRD s/p Renal Transplant, DM, Asthma presented with cellulitis. #ESRD s/p Renal Transplant #Cellulitis/Abbesses #DM #Hypertension Renal function worse then baseline but stable Continue isotonic saline at the present rate Check UPCR and FeNa Continue Tacrolimus and Cellcept at the present dose Check Vanco levels if further vanco needed ID and surgical follow up Restarted Ines Garrett DO
[2017-09-11] MEDS ORDERED: PT OWN MED DRAWER 7, Y5N ONE (20:42)
[2017-09-11] MEDS: ATORVASTATIN CA 40 MG TABLET (FP) PO SCH (21:26)
[2017-09-12] MEDS: CLINDAMYCIN 600MG PREMIX IVPB 600 MG/50 ML BAG IVPB SCH ×4 (03:12→22:00)
[2017-09-12 04:16] LABS: URINE CREATININE 70.5 mg/dL (20-370)
[2017-09-12] MEDS: INSULIN SLIDING SCALE (NOVOLOG) 1 VIAL SQ SCH ×4 (06:11→22:03)
[2017-09-12] MEDS: HEPARIN NA (PORCINE) 5,000 UNITS/ML 1ML VIAL SQ SCH ×3 (06:11→22:02)
[2017-09-12] MEDS ORDERED: INSULIN (NOVOLOG) ASPART 100 UNITS/ML 10ML VIAL ONE ×2 (06:17→11:53)
[2017-09-12] MEDS ORDERED: INSULIN (LEVEMIR) 100 UNITS/ML UNITS SQ SCH (07:00)
[2017-09-12 07:25] LABS: BASO % 0.7 % (0-2.0); EOS % 2.4 % (0-4.5); HEMATOCRIT 29.6 % (35.4-49); HEMOGLOBIN 10.2 GM/dL (11.7-16.9); LYMPH % 18.7 % (8-40); MCHC 34.6 g/dl (32.0-35.9); MEAN CELL VOLUME 75.3 fl (80-96); MEAN PLT VOLUME 8.1 fl (7.5-11.1); MONO % 11.1 % (3.8-10.2); NEUT % 67.1 % (42.8-82.8); PLATELET COUNT 245 K/MM3 (134-434); RBC 3.93 M/mm3 (4.00-5.60); RDW 15.1 % (11.9-15.9); WHITE BLOOD COUNT 6.2 K/mm3 (4.0-10.0)
[2017-09-12 08:27] LABS: CHLORIDE 104 mmol/L (98-107); POTASSIUM 4.3 mmol/L (3.5-5.1); SODIUM 137 mmol/L (136-145)
[2017-09-12 08:31] LABS: ANION GAP 11 (8-16); BLOOD UREA NITROGEN 34 mg/dL (7-18); CALCIUM 8.7 mg/dL (8.5-10.1); CO2 22 mmol/L (21-32); CREATININE 1.3 mg/dL (0.7-1.3); GLUCOSE,RANDOM 235 mg/dL (74-106); MAGNESIUM 1.4 mg/dL (1.8-2.4); PHOSPHOROUS 3.2 mg/dL (2.5-4.9)
[2017-09-12] MEDS: TAMSULOSIN HCL 0.4 MG CAP.ER.24H (FP) PO SCH (08:35)
[2017-09-12] MEDS ORDERED: MAGNESIUM SULF 50% (8.12 MEQ/2 ML-1 GM VIAL) IVPB ONE (09:02)
[2017-09-12] MEDS ORDERED: PT OWN MED DRAWER 7, Y5N ONE ×2 (09:41→21:55)
[2017-09-12] MEDS: SERTRALINE HCL 50 MG TABLET (FP) PO SCH (09:46)
[2017-09-12] MEDS: ASPIRIN 81 MG CHEWABLE TABLETS PO SCH (09:46)
[2017-09-12] MEDS: TACROLIMUS ANHYDROUS 1 MG CAPSULE PO SCH ×2 (09:47→22:02)
[2017-09-12] MEDS: ATENOLOL 25 MG TABLET (FP) PO SCH (09:47)
[2017-09-12] MEDS: MYCOPHENOLATE MOFETIL 500 MG TABLET PO SCH ×2 (09:48→22:02)
[2017-09-12] MEDS ORDERED: MAGNESIUM SULFATE IN WATER 2 GM/50 ML IVPB IVPB ONE (09:50)
--- NOTE | 2017-09-12 10:41 | PN ---
Progress Note (short form) - Note Progress Note: Attending Surgeon POD#2 Feels much better VSS AF wounds open and packed; no d/c; o/w negative WBC-nl; cultures noted IMP: improved PLAN: Continue LWC and IVABS as per ID Margarito Hough MD FACS
--- NOTE | 2017-09-12 12:25 | OP ---
DATE OF OPERATION: 09/10/2017 PREOPERATIVE DIAGNOSIS: Acute bacterial skin and skin structure infection of the left axilla and right lower back. POSTOPERATIVE DIAGNOSIS: Acute bacterial skin and skin structure infection of the left axilla and right lower back. PROCEDURE: Incision and drainage, acute bacterial skin and skin structure infection of the left axilla and right lower back. SURGEON: Margarito Hough MD NANOSYSTEMS ENGINEER: None. OPERATIVE FINDINGS: There was an abscess in the left axilla and an infected sebaceous cyst of the right lower back. The rest of the findings were unremarkable. PROCEDURE: The patient was placed on the operating room table in the supine position and, after the induction of general anesthesia, the patient's left axilla was prepped with Betadine and draped in sterile fashion. A timeout was taken and an incision was made with a scalpel and taken down through skin and subcutaneous tissue. Purulent drainage was obtained and sent for culture and sensitivity and the cavity explored digitally, breaking up all loculations. Irrigation was carried out with a 50:50 mix of peroxide and saline and hemostasis secured with electrocautery and the wound packed with 1-inch Iodoform packing and the wound was then dressed with sterile dressings. The drapes were then taken down and the patient was then repositioned into the left lateral decubitus position. Again, the area over the infection of the right lower back was prepped with Betadine and draped in sterile fashion. Again, an incision was made with a scalpel and taken down through skin and subcutaneous tissue and purulent drainage obtained and sent for culture and sensitivity. All loculations were broken up using digital exploration and the wound irrigated in the same fashion as the one in the left axilla and packed and dressed in the same manner. The patient was then aroused from general anesthesia and transferred to the postanesthesia care unit in stable condition, awake and alert. ESTIMATED BLOOD LOSS: 10 mL. REPLACEMENTS: Crystalloid. DRAINS: Packing in both wounds. I, Margarito Hough, was physically present in the operating room from the time the patient was placed on the operating room table until he was transferred to the postanesthesia care unit in [employer]. MD VANESSA Domínguez/[id number] MTDD
[2017-09-12] MEDS: SODIUM CHLORIDE 1,000 ML IV SCH (15:39)
--- NOTE | 2017-09-12 16:41 | PN ---
Physical Exam: SUBJECTIVE: Patient seen and examined,f eels better, minimal Pain. PO intake improved. OBJECTIVE: Vital Signs Period Temp Pulse Resp BP Sys/Pena Pulse Ox Last 24 Hr 98.6 F-99.3 F 80-101 18- 118-147/57-93 96-97 GENERAL: lying in bed in no acute distress Skin: left axilla, wound with packing, markedly improved surrounding induration/ swelling/erythema, mininimal tenderness, Right lower back wound with packing and improved swelling/erythema/tenderness, Abdomen:Soft, NT, ND, positive bowel sounds Extremities: no edema Laboratory Results - last 24 hr 09/11/17 09/11/17 09/12/17 16:52 21:25 03:50 WBC RBC Hgb Hct MCV MCH MCHC RDW Plt Count MPV Absolute Neuts (auto) Neutrophils % Lymphocytes % Monocytes % Eosinophils % Basophils % Nucleated RBC % Sodium Potassium Chloride Carbon Dioxide Anion Gap BUN Creatinine Creat Clearance w eGFR POC Glucometer 268 312 Random Glucose Calcium Phosphorus Magnesium U Random Total Protein Ur Random Sodium 45 Urine Creatinine Random Vancomycin HIV 1&2 Antibody Screen HIV P24 Antigen 09/12/17 09/12/17 09/12/17 03:50 06:09 06:10 WBC RBC Hgb Hct MCV MCH MCHC RDW Plt Count MPV Absolute Neuts (auto) Neutrophils % Lymphocytes % Monocytes % Eosinophils % Basophils % Nucleated RBC % Sodium Potassium Chloride Carbon Dioxide Anion Gap BUN Creatinine Creat Clearance w eGFR POC Glucometer 263 Random Glucose Calcium Phosphorus Magnesium U Random Total Protein 46 H Ur Random Sodium Urine Creatinine 70.5 Random Vancomycin 10.52 HIV 1&2 Antibody Screen HIV P24 Antigen 09/12/17 09/12/17 09/12/17 06:10 06:10 06:10 WBC 6.2 RBC 3.93 L Hgb 10.2 L Hct 29.6 L MCV 75.3 L MCH 26.0 MCHC 34.6 RDW 15.1 Plt Count 245 MPV 8.1 Absolute Neuts (auto) 4.2 Neutrophils % 67.1 Lymphocytes % 18.7 D Monocytes % 11.1 H Eosinophils % 2.4 D Basophils % 0.7 D Nucleated RBC % 0 Sodium 137 Potassium 4.3 Chloride 104 Carbon Dioxide 22 Anion Gap 11 BUN 34 H Creatinine 1.3 Creat Clearance w eGFR 59.43 POC Glucometer Random Glucose 235 H D Calcium 8.7 Phosphorus 3.2 D Magnesium 1.4 L D U Random Total Protein Ur Random Sodium Urine Creatinine Random Vancomycin HIV 1&2 Antibody Screen Negative HIV P24 Antigen Negative 09/12/17 12:16 WBC RBC Hgb Hct MCV MCH MCHC RDW Plt Count MPV Absolute Neuts (auto) Neutrophils % Lymphocytes % Monocytes % Eosinophils % Basophils % Nucleated RBC % Sodium Potassium Chloride Carbon Dioxide Anion Gap BUN Creatinine Creat Clearance w eGFR POC Glucometer 175 Random Glucose Calcium Phosphorus Magnesium U Random Total Protein Ur Random Sodium Urine Creatinine Random Vancomycin HIV 1&2 Antibody Screen HIV P24 Antigen Active Medications Generic Name Dose Route Start Last Admin Trade Name Freq PRN Reason Stop Dose Admin Acetaminophen 650 mg 09/10/17 19:40 Tylenol - PO Q6H PRN PAIN 7-10 Albuterol Sulfate 2 puff 09/10/17 20:06 Ventolin Hfa Inhaler - IH Q6H PRN SHORTNESS OF BREATH Aspirin 81 mg 09/11/17 10:00 09/12/17 09:46 Asa - PO 81 mg DAILY RAMY Administration Atenolol 25 mg 09/11/17 10:00 09/12/17 09:47 Tenormin - PO 25 mg DAILY RAMY Administration Atorvastatin Calcium 40 mg 09/10/17 22:00 09/11/17 21:26 Lipitor - PO 40 mg HS RAYM Administration Heparin Sodium (Porcine) 5,000 unit 09/10/17 22:00 09/12/17 15:39 Heparin - SQ 5,000 unit TID RAMY Administration Clindamycin Phosphate 600 mg in 50 mls @ 100 mls/hr 09/10/17 21:00 09/12/17 15:39 Cleocin 600 Mg Premix Ivpb - IVPB 100 mls/hr Q6H-IV RAMY Administration Protocol Sodium Chloride 1,000 mls @ 75 mls/hr 09/11/17 12:00 09/12/17 15:39 Normal Saline - IV 75 mls/hr ASDIR RAMY Administration Sodium Phosphate 30 mm/ Sodium 260 mls @ 62.5 mls/hr 09/12/17 16:31 Chloride IVPB 09/12/17 20:40 ONCE ONE Vancomycin HCl 1,250 mg/ 250 mls @ 250 mls/2 hr 09/12/17 16:35 Dextrose IVPB 09/12/17 18:34 ONCE ONE Protocol Insulin Aspart 5 units 09/13/17 07:00 Novolog SQ BID@0700,1630 [facility] Insulin Aspart 1 vial 09/12/17 16:35 Novolog Vial Sliding Scale - SQ ACHS [facility] Protocol Insulin Detemir 20 units 09/12/17 22:00 Levemir Vial SQ BID [facility] Mycophenolate Mofetil 1,000 mg 09/10/17 22:00 09/12/17 09:48 Cellcept - PO 1,000 mg BID [facility] Administration Ondansetron HCl 4 mg 09/10/17 20:06 Zofran Injection IVPUSH Q6H PRN NAUSEA AND/OR VOMITING Oxycodone HCl 10 mg 09/10/17 19:40 Roxicodone - PO Q6H PRN PAIN 7-10 Sertraline HCl 200 mg 09/11/17 12:15 09/12/17 09:46 Zoloft - PO 200 mg DAILY RAMY Administration Tacrolimus 3 mg 09/10/17 22:00 09/12/17 09:47 Prograf PO 3 mg BID RAMY Administration Tamsulosin HCl 0.4 mg 09/12/17 08:30 09/12/17 08:35 Flomax - PO 0.4 mg DAILY@0830 [facility] Administration Microbiology 09/10/17 20:00 Abscess Gram Stain - Final 09/10/17 20:00 Abscess Wound Culture - Preliminary Staphylococcus Latex Coag Pos 09/10/17 20:00 Wound Gram Stain - Final 09/10/17 20:00 Wound Wound Culture - Preliminary Presumptive Mrsa (Pbp2a Pos) 09/09/17 19:44 Abscess Gram Stain - Final 09/09/17 19:44 Abscess Wound Culture - Final Mr S Aureus 09/09/17 18:10 Blood - Peripheral Venous Blood Culture - Preliminary NO GROWTH OBTAINED AFTER 48 HOURS, INCUBATION TO CONTINUE FOR 3 DAYS. 09/09/17 18:00 Blood - Peripheral Venous Blood Culture - Preliminary NO GROWTH OBTAINED AFTER 48 HOURS, INCUBATION TO CONTINUE FOR 3 DAYS. 09/09/17 17:35 Urine - Urine Clean Catch Urine Culture - Final NO GROWTH OBTAINED ASSESSMENT/PLAN: 47 yom with PMHx of Renal transplant on tacrolimus/Mycophenolate, IDDM, HTN, CKD stage II (baseline Cr around 1.4) admitted with left axiallary and right lower back skin abscesses with sepsis and TRAVIS. -Left axillary/Right lower back skin abscesses with sepsis s/p I&D 09/10 -TRAVIS, likely from poor oral intake and sepsis -Hypovolumic hyponatremia -IDDM -HTN -REnal transplant on immunosuppressants Plan: Surgery/ID input noted. Clindamycin/ day 3, Vanco levels noted. redose 1250 mg today, levels in AM Follow up with ID, likely transition to PO pending cultures. Surgery input noted, follow up wound care instructions on d/c Gentle hydration. REnal input noted. Cr improved. Tacrolimus/Mycophenolate, continue per clinical course and renal recs. Continue atenolol. Resume losartan in 24 hours. DVTPPX with heparin Dispo likely d/c in 24 hours on oral abx, pending cultures and surgery input. Plan discussed with patient in detail, all questions answered. Visit type - Emergency Visit Emergency Visit: Yes ED Registration Date: 09/09/17 Care time: The patient presented to the Emergency Department on the above date and was hospitalized for further evaluation of their emergent condition. - New Patient This patient is new to me today: No - Critical Care Critical Care patient: No - Discharge Referral Referred to [facility] No
[2017-09-12] MEDS ORDERED: VANCOMYCIN 1,250 MG in DEXTROSE 5%-WATER - 250 ML IVPB ONE (17:00)
[2017-09-12] MEDS ORDERED: SODIUM PHOSPHATE - 30 MM in SODIUM CHLORIDE 500 ML IVPB ONE (17:00)
[2017-09-12] MEDS ORDERED: INSULIN (NOVOLOG) ASPART 100 UNITS/ML 10ML VIAL SQ ONE (18:00)
[2017-09-12] MEDS: ATORVASTATIN CA 40 MG TABLET (FP) PO SCH (22:02)
[2017-09-12] MEDS: INSULIN (LEVEMIR) 100 UNITS/ML UNITS SQ SCH (22:03)
[2017-09-13] MEDS: CLINDAMYCIN 600MG PREMIX IVPB 600 MG/50 ML BAG IVPB SCH ×2 (03:39→10:08)
[2017-09-13] MEDS: INSULIN SLIDING SCALE (NOVOLOG) 1 VIAL SQ SCH ×2 (06:37→12:42)
[2017-09-13] MEDS: INSULIN (LEVEMIR) 100 UNITS/ML UNITS SQ SCH (06:38)
[2017-09-13] MEDS: HEPARIN NA (PORCINE) 5,000 UNITS/ML 1ML VIAL SQ SCH ×2 (06:39→15:46)
[2017-09-13] MEDS ORDERED: INSULIN (NOVOLOG) ASPART 100 UNITS/ML 10ML VIAL SQ SCH (07:00)
[2017-09-13 07:23] LABS: BASO % 0.7 % (0-2.0); EOS % 2.3 % (0-4.5); HEMATOCRIT 28.2 % (35.4-49); HEMOGLOBIN 9.7 GM/dL (11.7-16.9); LYMPH % 25.5 % (8-40); MCH 25.7 pg (25.7-33.7); MCHC 34.4 g/dl (32.0-35.9); MEAN CELL VOLUME 74.9 fl (80-96); MEAN PLT VOLUME 7.9 fl (7.5-11.1); MONO % 17.1 % (3.8-10.2); NEUT % 54.4 % (42.8-82.8); PLATELET COUNT 234 K/MM3 (134-434); RBC 3.77 M/mm3 (4.00-5.60); RDW 14.6 % (11.9-15.9)
[2017-09-13 07:49] LABS: ANION GAP 10 (8-16); BLOOD UREA NITROGEN 24 mg/dL (7-18); CALCIUM 8.4 mg/dL (8.5-10.1); CHLORIDE 106 mmol/L (98-107); CO2 22 mmol/L (21-32); CREATININE 1.1 mg/dL (0.7-1.3); GLUCOSE,RANDOM 205 mg/dL (74-106); MAGNESIUM 1.3 mg/dL (1.8-2.4); PHOSPHOROUS 3.7 mg/dL (2.5-4.9); POTASSIUM 4.1 mmol/L (3.5-5.1); SODIUM 138 mmol/L (136-145)
[2017-09-13] MEDS ORDERED: MAGNESIUM SULF 50% (8.12 MEQ/2 ML-1 GM VIAL) IVPB ONE (08:40)
[2017-09-13] MEDS ORDERED: MAGNESIUM SULFATE IN WATER 2 GM/50 ML IVPB IVPB ONE (09:15)
[2017-09-13] MEDS ORDERED: PT OWN MED DRAWER 7, Y5N ONE (09:29)
[2017-09-13] MEDS: TAMSULOSIN HCL 0.4 MG CAP.ER.24H (FP) PO SCH (10:08)
[2017-09-13] MEDS: SERTRALINE HCL 50 MG TABLET (FP) PO SCH (10:08)
[2017-09-13] MEDS: ASPIRIN 81 MG CHEWABLE TABLETS PO SCH (10:09)
[2017-09-13] MEDS: ATENOLOL 25 MG TABLET (FP) PO SCH (10:09)
[2017-09-13] MEDS: TACROLIMUS ANHYDROUS 1 MG CAPSULE PO SCH (10:09)
[2017-09-13] MEDS: MYCOPHENOLATE MOFETIL 500 MG TABLET PO SCH (10:10)
[2017-09-13] MEDS ORDERED: VANCOMYCIN 1,250 MG in DEXTROSE 5%-WATER - 250 ML IVPB ONE (10:30)
[2017-09-13 11:34] LABS: ACANTHOCYTES 0; ANISOCYTOSIS 0; HELMET CELLS 0; HOWELL-JOLLY BODIES 0; MACROCYTOSIS 0; OVALOCYTE 0; ROULEAU 0; SICKELED CELLS 0; TARGET CELLS 0; TEAR DROP CELLS 0; TOXIC GRANULATION 0
[2017-09-13 12:25] LABS: PLATELET ESTIMATE NORMAL
[2017-09-13 13:42] VITALS: PULSE 76
[2017-09-13] MEDS ORDERED: CLINDAMYCIN HCL 150 MG CAPSULE (FP) PO SCH (14:00)
--- NOTE | 2017-09-13 14:06 | PN ---
Teaching Attending Note Name of Resident: Ava Tang ATTENDING PHYSICIAN STATEMENT I saw and evaluated the patient. I reviewed the resident's note and discussed the case with the resident. I agree with the resident's findings and plan as documented with exceptions below. SUBJECTIVE: Patient seen and examined, feels better, no fevers, chills or new concerns. OBJECTIVE: Vital Signs Period Temp Pulse Resp BP Sys/Pena Pulse Ox Last 24 Hr 97.6 F-99.2 F 76-86 18-24 137-158/79-90 96 Intake & Output 09/10/17 09/11/17 09/12/17 09/13/17 23:59 23:59 23:59 23:59 Intake Total 1875 1505 2080 575 Output Total 0 700 Balance 1875 1505 1380 575 Weight 228 lb General: sitting in bed in no acute distress Extremities: LEft axilla, wound with packing, minimal discharge, surrounding erythema/induration markedly improved, resolved tenderness Right lower back with packing and dressing, improved erythema/induration and resolved tenderness Chest: CTAB, no rales or wheezing Abdomen: soft NT Active Medications Acetaminophen (Tylenol -) 650 mg PO Q6H PRN PRN Reason: PAIN 7-10 Albuterol Sulfate (Ventolin Hfa Inhaler -) 2 puff IH Q6H PRN PRN Reason: SHORTNESS OF BREATH Aspirin (Asa -) 81 mg PO DAILY [facility] Last Admin: 09/13/17 10:09 Dose: 81 mg Atenolol (Tenormin -) 25 mg PO DAILY [facility] Last Admin: 09/13/17 10:09 Dose: 25 mg Atorvastatin Calcium (Lipitor -) 40 mg PO HS [facility] Last Admin: 09/12/17 22:02 Dose: 40 mg Clindamycin HCl (Cleocin -) 450 mg PO TID [facility] Heparin Sodium (Porcine) (Heparin -) 5,000 unit SQ TID [facility] Last Admin: 09/13/17 06:39 Dose: 5,000 unit Insulin Aspart (Novolog Vial) 5 units SQ BID@0700,1630 [facility] Last Admin: 09/13/17 06:38 Dose: 5 units Insulin Aspart (Novolog Vial Sliding Scale -) 1 vial SQ [facility] COUNT [facility]CLUDES [facility]; Protocol Last Admin: 09/13/17 12:42 Dose: 4 units Insulin Detemir (Levemir Vial) 20 units SQ BID@0700,2200 [facility] Last Admin: 09/13/17 06:38 Dose: 20 units Mycophenolate Mofetil (Cellcept -) 1,000 mg PO BID [facility] Last Admin: 09/13/17 10:10 Dose: 1,000 mg Ondansetron HCl (Zofran Injection) 4 mg IVPUSH Q6H PRN PRN Reason: NAUSEA AND/OR VOMITING Sertraline HCl (Zoloft -) 200 mg PO DAILY [facility] Last Admin: 09/13/17 10:08 Dose: 200 mg Tacrolimus (Prograf) 3 mg PO BID [facility] Last Admin: 09/13/17 10:09 Dose: 3 mg Tamsulosin HCl (Flomax -) 0.4 mg PO DAILY@0830 [facility] Last Admin: 09/13/17 10:08 Dose: 0.4 mg Laboratory Results - last 24 hr 09/09/17 09/10/17 09/12/17 21:33 22:47 16:36 WBC RBC Hgb Hct MCV MCH MCHC RDW Plt Count MPV Absolute Neuts (auto) Neutrophils % Neutrophils % (Manual) Band Neutrophils % Lymphocytes % Lymphocytes % (Manual) Monocytes % Monocytes % (Manual) Eosinophils % Eosinophils % (Manual) Basophils % Basophils % (Manual) Myelocytes % (Man) Promyelocytes % (Man) Blast Cells % (Manual) Nucleated RBC % Metamyelocytes Hypochromia Toxic Granulation Dohle Bodies Platelet Estimate Polychromasia Poikilocytosis Basophilic Stippling Anisocytosis Microcytosis Macrocytosis Spherocytes Sickle Cells Target Cells Tear Drop Cells Ovalocytes Stomatocytes Helmet Cells Azul-Cashion Bodies [place] Rings [place] Cells Acanthocytes (Spur) Rouleaux Fragmented RBCs Schistocytes Sodium Potassium Chloride Carbon Dioxide Anion Gap BUN Creatinine Creat Clearance w eGFR POC Glucometer 437 211 Random Glucose Calcium Phosphorus Magnesium Random Vancomycin Tacrolimus 2.5 09/12/17 09/13/17 09/13/17 21:59 06:00 06:00 WBC 5.0 RBC 3.77 L Hgb 9.7 L Hct 28.2 L MCV 74.9 L MCH 25.7 MCHC 34.4 RDW 14.6 Plt Count 234 MPV 7.9 Absolute Neuts (auto) 2.7 Neutrophils % 54.4 Neutrophils % (Manual) 54.1 Band Neutrophils % 1.0 Lymphocytes % 25.5 D Lymphocytes % (Manual) 29.6 Monocytes % 17.1 H Monocytes % (Manual) 10 Eosinophils % 2.3 Eosinophils % (Manual) 5.1 H Basophils % 0.7 Basophils % (Manual) 0.0 Myelocytes % (Man) 0 Promyelocytes % (Man) 0 Blast Cells % (Manual) 0 Nucleated RBC % 1 H Metamyelocytes 0 Hypochromia 0 Toxic Granulation 0 Dohle Bodies 0 Platelet Estimate Normal Polychromasia 0 Poikilocytosis 0 Basophilic Stippling 0 Anisocytosis 0 Microcytosis 0 Macrocytosis 0 Spherocytes 0 Sickle Cells 0 Target Cells 0 Tear Drop Cells 0 Ovalocytes 0 Stomatocytes 0 Helmet Cells 0 Azul-Cashion Bodies 0 [place] Rings 0 Matthieu Cells 0 Acanthocytes (Spur) 0 Rouleaux 0 Fragmented RBCs 0 Schistocytes 0 Sodium Potassium Chloride Carbon Dioxide Anion Gap BUN Creatinine Creat Clearance w eGFR POC Glucometer 272 Random Glucose Calcium Phosphorus Magnesium Random Vancomycin 10.54 Tacrolimus 09/13/17 09/13/17 09/13/17 06:00 06:36 12:09 WBC RBC Hgb Hct MCV MCH MCHC RDW Plt Count MPV Absolute Neuts (auto) Neutrophils % Neutrophils % (Manual) Band Neutrophils % Lymphocytes % Lymphocytes % (Manual) Monocytes % Monocytes % (Manual) Eosinophils % Eosinophils % (Manual) Basophils % Basophils % (Manual) Myelocytes % (Man) Promyelocytes % (Man) Blast Cells % (Manual) Nucleated RBC % Metamyelocytes Hypochromia Toxic Granulation Dohle Bodies Platelet Estimate Polychromasia Poikilocytosis Basophilic Stippling Anisocytosis Microcytosis Macrocytosis Spherocytes Sickle Cells Target Cells Tear Drop Cells Ovalocytes Stomatocytes Helmet Cells Azul-Cashion Bodies [place] Rings Matthieu Cells Acanthocytes (Spur) Rouleaux Fragmented RBCs Schistocytes Sodium 138 Potassium 4.1 Chloride 106 Carbon Dioxide 22 Anion Gap 10 BUN 24 H Creatinine 1.1 Creat Clearance w eGFR > 60 POC Glucometer 254 209 Random Glucose 205 H Calcium 8.4 L Phosphorus 3.7 Magnesium 1.3 L Random Vancomycin Tacrolimus Microbiology 09/10/17 20:00 Abscess Gram Stain - Final 09/10/17 20:00 Abscess Wound Culture - Final Staphylococcus Latex Coag Pos 09/10/17 20:00 Wound Gram Stain - Final 09/10/17 20:00 Wound Wound Culture - Final Mr S Aureus 09/09/17 18:10 Blood - Peripheral Venous Blood Culture - Preliminary NO GROWTH OBTAINED AFTER 72 HOURS, INCUBATION TO CONTINUE FOR 2 DAYS. 09/09/17 18:00 Blood - Peripheral Venous Blood Culture - Preliminary NO GROWTH OBTAINED AFTER 72 HOURS, INCUBATION TO CONTINUE FOR 2 DAYS. 09/09/17 19:44 Abscess Gram Stain - Final 09/09/17 19:44 Abscess Wound Culture - Final S Aureus 09/09/17 17:35 Urine - Urine Clean Catch Urine Culture - Final NO GROWTH OBTAINED ASSESSMENT AND PLAN: 47 yom with PMHx of Renal transplant on tacrolimus/Mycophenolate, IDDM, HTN, CKD stage II (baseline Cr around 1.4) admitted with left axiallary and right lower back skin abscesses with sepsis and TRAVIS. -Left axillary/Right lower back skin abscesses with sepsis s/p I&D 09/10 -TRAVIS, likely from poor oral intake and sepsis -Hypovolumic hyponatremia -IDDM -HTN -REnal transplant on immunosuppressants Plan: Continues to improve. Afebrile, leucocytosis resolved. Wound cultures noted. Discussed with Dr. Roth, clindamycin for [address] Hough, no need for wound packing, outpatient follow up in 7- 10 days. RN to go over dressing with mother. No VNS needed as discussed with surgery. Renal function better than baseline. Resume home meds and diabetic regimen. dc home after dressing teaching with outpatient surgery follow up. Plan discussed with patient in detail, all questions answered. Discussed with Dr. Roth and Dr. Hough.
--- NOTE | 2017-09-13 14:29 | DS ---
Physical Exam: SUBJECTIVE: Patient seen and examined at bedside. He feels much better without any new complaints. Denies fevers, chills, chest pain SOB. OBJECTIVE: Vital Signs Period Temp Pulse Resp BP Sys/Pena Pulse Ox Last 24 Hr 97.6 F-99.2 F 76-86 18-24 137-158/79-90 96 PHYSICAL EXAM GENERAL: The patient is awake, alert, and fully oriented, in no acute distress. LUNGS: Breath sounds equal, clear to auscultation bilaterally, no wheezes, no crackles HEART: Regular rate and rhythm, S1, S2 without murmur, rub or gallop. ABDOMEN: Soft, nontender, nondistended, normoactive bowel sounds, no guarding, no rebound EXTREMITIES: no edema. SKIN: Wound covered by dressing present in Left axilla, draining minimal discharge, improved surrounding erythema. Similar 2nd wound present over right lower back. No tenderness to palpation LABS Laboratory Results - last 24 hr 09/09/17 09/10/17 09/12/17 21:33 22:47 16:36 WBC RBC Hgb Hct MCV MCH MCHC RDW Plt Count MPV Absolute Neuts (auto) Neutrophils % Neutrophils % (Manual) Band Neutrophils % Lymphocytes % Lymphocytes % (Manual) Monocytes % Monocytes % (Manual) Eosinophils % Eosinophils % (Manual) Basophils % Basophils % (Manual) Myelocytes % (Man) Promyelocytes % (Man) Blast Cells % (Manual) Nucleated RBC % Metamyelocytes Hypochromia Toxic Granulation Dohle Bodies Platelet Estimate Polychromasia Poikilocytosis Basophilic Stippling Anisocytosis Microcytosis Macrocytosis Spherocytes Sickle Cells Target Cells Tear Drop Cells Ovalocytes Stomatocytes Helmet Cells Azul-Carmine Bodies Madison Rings Rogers Cells Acanthocytes (Spur) Rouleaux Fragmented RBCs Schistocytes Sodium Potassium Chloride Carbon Dioxide Anion Gap BUN Creatinine Creat Clearance w eGFR POC Glucometer 437 211 Random Glucose Calcium Phosphorus Magnesium Random Vancomycin Tacrolimus 2.5 09/12/17 09/13/17 09/13/17 21:59 06:00 06:00 WBC 5.0 RBC 3.77 L Hgb 9.7 L Hct 28.2 L MCV 74.9 L MCH 25.7 MCHC 34.4 RDW 14.6 Plt Count 234 MPV 7.9 Absolute Neuts (auto) 2.7 Neutrophils % 54.4 Neutrophils % (Manual) 54.1 Band Neutrophils % 1.0 Lymphocytes % 25.5 D Lymphocytes % (Manual) 29.6 Monocytes % 17.1 H Monocytes % (Manual) 10 Eosinophils % 2.3 Eosinophils % (Manual) 5.1 H Basophils % 0.7 Basophils % (Manual) 0.0 Myelocytes % (Man) 0 Promyelocytes % (Man) 0 Blast Cells % (Manual) 0 Nucleated RBC % 1 H Metamyelocytes 0 Hypochromia 0 Toxic Granulation 0 Dohle Bodies 0 Platelet Estimate Normal Polychromasia 0 Poikilocytosis 0 Basophilic Stippling 0 Anisocytosis 0 Microcytosis 0 Macrocytosis 0 Spherocytes 0 Sickle Cells 0 Target Cells 0 Tear Drop Cells 0 Ovalocytes 0 Stomatocytes 0 Helmet Cells 0 Azul-Carmine Bodies 0 Madison Rings 0 Rogers Cells 0 Acanthocytes (Spur) 0 Rouleaux 0 Fragmented RBCs 0 Schistocytes 0 Sodium Potassium Chloride Carbon Dioxide Anion Gap BUN Creatinine Creat Clearance w eGFR POC Glucometer 272 Random Glucose Calcium Phosphorus Magnesium Random Vancomycin 10.54 Tacrolimus 09/13/17 09/13/17 09/13/17 06:00 06:36 12:09 WBC RBC Hgb Hct MCV MCH MCHC RDW Plt Count MPV Absolute Neuts (auto) Neutrophils % Neutrophils % (Manual) Band Neutrophils % Lymphocytes % Lymphocytes % (Manual) Monocytes % Monocytes % (Manual) Eosinophils % Eosinophils % (Manual) Basophils % Basophils % (Manual) Myelocytes % (Man) Promyelocytes % (Man) Blast Cells % (Manual) Nucleated RBC % Metamyelocytes Hypochromia Toxic Granulation Dohle Bodies Platelet Estimate Polychromasia Poikilocytosis Basophilic Stippling Anisocytosis Microcytosis Macrocytosis Spherocytes Sickle Cells Target Cells Tear Drop Cells Ovalocytes Stomatocytes Helmet Cells Azul-Carmine Bodies Madison Rings Rogers Cells Acanthocytes (Spur) Rouleaux Fragmented RBCs Schistocytes Sodium 138 Potassium 4.1 Chloride 106 Carbon Dioxide 22 Anion Gap 10 BUN 24 H Creatinine 1.1 Creat Clearance w eGFR > 60 POC Glucometer 254 209 Random Glucose 205 H Calcium 8.4 L Phosphorus 3.7 Magnesium 1.3 L Random Vancomycin Tacrolimus Microbiology 09/09/17 18:10 Blood - Peripheral Venous Blood Culture - Final NO GROWTH AFTER 5 DAYS INCUBATION 09/09/17 18:00 Blood - Peripheral Venous Blood Culture - Final NO GROWTH AFTER 5 DAYS INCUBATION 09/10/17 20:00 Abscess Gram Stain - Final 09/10/17 20:00 Abscess Wound Culture - Final Staphylococcus Latex Coag Pos 09/10/17 20:00 Wound Gram Stain - Final 09/10/17 20:00 Wound Wound Culture - Final S Aureus 09/09/17 19:44 Abscess Gram Stain - Final 09/09/17 19:44 Abscess Wound Culture - Final S Aureus 09/09/17 17:35 Urine - Urine Clean Catch Urine Culture - Final NO GROWTH OBTAINED IMAGING: CXR: A single view the chest reveals clear lungs, slight rotation to the left, normal mediastinum and sharp angles. An acute process is not seen. Since 2009, there is no change of an adverse nature. HOSPITAL COURSE: Date of Admission:09/09/17 Date of Discharge: 09/13/17 Prehospital course as per Dr. Mike Gardner 47 y/o male with PMH renal transplant on tacrolimus and mycophenolate, DM, asthma presents with complaint of left axillary and right lower back pain and swelling for the past week. States that he experienced increased sweating and pruritis under his arms, that resulted in frequent scratching but denies breaking the skin. Also admits that approx. 2 weeks ago his girlfriend removed several blackheads from his back with tweezers. He now reports pain and swelling over the area that began worsening over the weekend. Admits to mucopurulent discharge from both sites. Endorses history of prior abscesses. Admits fevers, sweats, chills, malaise, nausea. Denies chest pain, palpitations , shortness of breath, vomiting, diarrhea, hematuria. ER course was notable for Levaquin, Vancomyin, Ofirimev, blood cx, urine cx, wound cx Hospital Course Patient was admitted for multiple abscesses on his Left Axilla and Right lower back. General Surgery and Infectious disease were consulted. An Incision and Drainage with debridement was performed on 09/10. Patient completed a 4 day course of Clindamycin and Vancomycin. Patient remained Afebrile and his Leukocytosis resolved. Patients wound cultures were noted and he was instructed to continue Clindamycin for 7 days after discharge. Patients mother was taught dressing changes and he was instructed to follow up with Dr. Hough outpatient in 7-10 days. Minutes to complete discharge: 38 Discharge Summary Reason For Visit: ABSCESS/CELLULITIS/POST KIDNEY TRANSPLANT Current Active Problems Abscess (Acute) Abscess of lower back (Acute) Axillary abscess (Acute) Cellulitis (Acute) Condition: Good - Instructions Diet, Activity, Other Instructions: Antibiotic Clindamycin 450 mg 3 times daily for 7 days. Your antibiotic has been sent to [facility] pharmacy on [address] [place] [address]. Please come to hospital if you notice any diarrhea, blood in stool, fevers, chills, decreased urination or any new concerns. 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 Following blood test in 1 week with your doctor: BMP (basic metabolic panel) Dr. Hough Discharge Instructions Physical activity No restrictions. Wound care No need for wound to be packed anymore. You may shower. Wound is expected to drain for a couple of days. Place 4x4 and tape to cover wounds. Change as needed. Diet Per your normal routine. Pain management You may take Tylenol as needed for pain. Call Dr. Hough for any of the following: Severe pain not relieved by medication Fever of 101 or higher Excessive bleeding or drainage on dressing Call the office at [phone] for a post operative appointment in 7 - 10 days. Referrals: Margarito Hough MD [Staff Physician] - Diogo Valencia MD [Primary Care Provider] - Disposition: HOME - Home Medications Comprehensive Discharge Medication List: Ambulatory Orders Albuterol Sulfate [Proair Hfa -] 1 - 2 inh PO TID 12/11/11 Aspirin [ASA -] 81 mg PO DAILY 12/11/11 Atenolol [Tenormin -] 25 mg PO DAILY 12/11/11 Atorvastatin Ca [Lipitor] 40 mg PO HS 12/11/11 Fenofibrate Nanocrystallized [Tricor] 145 mg PO DAILY 12/11/11 Mycophenolate Mofetil [Cellcept -] 1,000 mg PO BID 12/11/11 Potassium Chloride [Klor-Con M20] 20 meq PO DAILY 12/11/11 Sertraline HCl 200 mg PO DAILY 12/11/11 Tacrolimus 3 mg PO BID 12/11/11 Cholecalciferol (Vitamin D3) [Vitamin D -] 2,000 unit PO DAILY 09/09/17 Clotrimazole/Betamet Diprop [Lotrisone -] 1 applic TP DAILY 09/09/17 Dutasteride/Tamsulosin HCl [Umu 0.5-0.4 mg Capsule] 1 each PO DAILY 09/09/17 Famotidine 20 mg PO DAILY 09/09/17 Insulin (LOG) Aspart [NovoLOG -] 20 units SQ BID 09/09/17 Insulin (Levemir) [Levemir Vial] 32 unit SQ BID 09/09/17 Losartan Potassium 100 mg PO DAILY 09/09/17 Magnesium Oxide [Mag-Oxide] 1,200 mg PO BID 09/09/17 Huntington-3 Fatty Acids [Huntington-3] 2,000 mg PO BID 09/09/17 Acetaminophen [Tylenol .Regular Strength -] 650 mg PO Q6H PRN tablet 09/13/17 Clindamycin [Cleocin -] 450 mg PO TID 7 Days #63 capsule 09/13/17 This patient is new to me today: No Emergency Visit: Yes ED Registration Date: 09/09/17 Care time: The patient presented to the Emergency Department on the above date and was hospitalized for further evaluation of their emergent condition. Critical Care patient: No - Discharge Referral Referred to [facility] Med [facility].: No
[2017-09-13 14:48] VITALS: BP 151/97; TEMP 98.7
--- NOTE | 2017-09-13 15:15 | PN ---
Progress Note, Physician History of Present Illness: S/P I&D soft tissue abscesses No c/o pain Temps down Afebrile WBC improved Wound c/s MRSA - Current Medication List Current Medications: Active Medications Acetaminophen (Tylenol -) 650 mg PO Q6H PRN PRN Reason: PAIN 7-10 Albuterol Sulfate (Ventolin Hfa Inhaler -) 2 puff IH Q6H PRN PRN Reason: SHORTNESS OF BREATH Aspirin (Asa -) 81 mg PO DAILY [facility] Last Admin: 09/13/17 10:09 Dose: 81 mg Atenolol (Tenormin -) 25 mg PO DAILY [facility] Last Admin: 09/13/17 10:09 Dose: 25 mg Atorvastatin Calcium (Lipitor -) 40 mg PO HS [facility] Last Admin: 09/12/17 22:02 Dose: 40 mg Clindamycin HCl (Cleocin -) 450 mg PO TID [facility] Heparin Sodium (Porcine) (Heparin -) 5,000 unit SQ TID [facility] Last Admin: 09/13/17 06:39 Dose: 5,000 unit Insulin Aspart (Novolog Vial) 5 units SQ BID@0700,1630 [facility] Last Admin: 09/13/17 06:38 Dose: 5 units Insulin Aspart (Novolog Vial Sliding Scale -) 1 vial SQ [facility]; Protocol Last Admin: 09/13/17 12:42 Dose: 4 units Insulin Detemir (Levemir Vial) 20 units SQ BID@0700,2200 [facility] Last Admin: 09/13/17 06:38 Dose: 20 units Mycophenolate Mofetil (Cellcept -) 1,000 mg PO BID [facility] Last Admin: 09/13/17 10:10 Dose: 1,000 mg Ondansetron HCl (Zofran Injection) 4 mg IVPUSH Q6H PRN PRN Reason: NAUSEA AND/OR VOMITING Sertraline HCl (Zoloft -) 200 mg PO DAILY [facility] Last Admin: 09/13/17 10:08 Dose: 200 mg Tacrolimus (Prograf) 3 mg PO BID [facility] Last Admin: 09/13/17 10:09 Dose: 3 mg Tamsulosin HCl (Flomax -) 0.4 mg PO DAILY@0830 [facility] Last Admin: 09/13/17 10:08 Dose: 0.4 mg - Objective Vital Signs: Vital Signs Temperature 98.7 F 09/13/17 14:47 Pulse Rate 76 09/13/17 14:47 Respiratory Rate 18 09/13/17 14:47 Blood Pressure 151/97 09/13/17 14:47 O2 Sat by Pulse Oximetry (%) 96 09/13/17 09:00 Constitutional: Yes: No Distress, Obese Cardiovascular: Yes: Regular Rate and Rhythm, S1, S2 Respiratory: Yes: CTA Bilaterally Gastrointestinal: Yes: Normal Bowel Sounds, Soft. No: Tenderness Integumentary: Yes: Other (L axillary and R flank abscesses packed, decreased erythema/ induration) Labs: CBC, BMP 09/13/17 06:00 09/13/17 06:00 INR, PTT INR 1.38 (0.82-1.09) H D 09/09/17 18:00 Assessment/Plan POD #2 I&D soft tissue abscesses S/P renal transplant on immunosuppressive therapy Azotemia Fever/ leukocytosis- improved Wound c/s MRSA May substitute clindamycin 450mg po tid x 7d Outpatient surgical follow up
--- NOTE | 2017-09-13 17:05 | PN ---
Progress Note (short form) - Note Progress Note: Renal follow up for Renal Transplant Pt seen and examined at the bedside awake and alert no acute complaints no fevers, chills, SOB, CP, Abd pain, N/V/D wounds feel better Vital Signs Temperature 98.7 F 09/13/17 14:47 Pulse Rate 76 09/13/17 14:47 Respiratory Rate 18 09/13/17 14:47 Blood Pressure 151/97 09/13/17 14:47 O2 Sat by Pulse Oximetry (%) 96 09/13/17 09:00 Intake & Output 09/10/17 09/11/17 09/12/17 09/13/17 23:59 23:59 23:59 23:59 Intake Total 1875 1505 2080 725 Output Total 0 700 Balance 1875 1505 1380 725 Weight 103.419 kg NAD MMM RRR CTA Trace edema in LE CBC, BMP 09/13/17 06:00 09/13/17 06:00 Current Medications Acetaminophen (Tylenol -) 650 mg PO Q6H PRN PRN Reason: PAIN 7-10 Albuterol Sulfate (Ventolin Hfa Inhaler -) 2 puff IH Q6H PRN PRN Reason: SHORTNESS OF BREATH Aspirin (Asa -) 81 mg PO DAILY [facility] Last Admin: 09/13/17 10:09 Dose: 81 mg Atenolol (Tenormin -) 25 mg PO DAILY [facility] Last Admin: 09/13/17 10:09 Dose: 25 mg Atorvastatin Calcium (Lipitor -) 40 mg PO HS [facility] Last Admin: 09/12/17 22:02 Dose: 40 mg Clindamycin HCl (Cleocin -) 450 mg PO TID [facility] Last Admin: 09/13/17 15:46 Dose: 450 mg Heparin Sodium (Porcine) (Heparin -) 5,000 unit SQ TID [facility] Last Admin: 09/13/17 15:46 Dose: Not Given Insulin Aspart (Novolog Vial) 5 units SQ BID@0700,1630 [facility] Last Admin: 09/13/17 06:38 Dose: 5 units Insulin Aspart (Novolog Vial Sliding Scale -) 1 vial SQ [facility]; Protocol Last Admin: 09/13/17 12:42 Dose: 4 units Insulin Detemir (Levemir Vial) 20 units SQ BID@0700,2200 [facility] Last Admin: 09/13/17 06:38 Dose: 20 units Mycophenolate Mofetil (Cellcept -) 1,000 mg PO BID [facility] Last Admin: 09/13/17 10:10 Dose: 1,000 mg Ondansetron HCl (Zofran Injection) 4 mg IVPUSH Q6H PRN PRN Reason: NAUSEA AND/OR VOMITING Sertraline HCl (Zoloft -) 200 mg PO DAILY [facility] Last Admin: 09/13/17 10:08 Dose: 200 mg Tacrolimus (Prograf) 3 mg PO BID [facility] Last Admin: 09/13/17 10:09 Dose: 3 mg Tamsulosin HCl (Flomax -) 0.4 mg PO DAILY@0830 [facility] Last Admin: 09/13/17 10:08 Dose: 0.4 mg 47 year old gentleman with PMhx of ESRD s/p Renal Transplant, DM, Asthma presented with cellulitis. #ESRD s/p Renal Transplant #Cellulitis/Abbesses #DM #Hypertension Renal function now at baseline continue Profraf and Cellcept oral abx as per ID BP at goal titrate insulin as per primary follow up with Dr. Correia on discharge Chandler Garrett DO
== END 2017-09-13 17:59 | disposition home or self-care (01) | DRG 872 ==
LOC: JER 16:24 → JERBED 19:35 → J5S 21:58 → J7W 09-10 08:29
PROVIDERS: ADMIT Internal Medicine; ATTEND Hospitalist
PROC: 0W9L0ZX Drainage of Lower Back, Open Approach, Diagnostic (ICD-10-PCS; 2017-09-10)
PROC: 0X950ZZ Drainage of Left Axilla, Open Approach (ICD-10-PCS; principal; 2017-09-10 16:00)
DX: A41.9 Sepsis, unspecified organism (principal); L03.112 Cellulitis of left axilla; Z94.0 Kidney transplant status; L02.212 Cutaneous abscess of back [any part, except buttock and flank]; N17.9 Acute kidney failure, unspecified; E87.1 Hypo-osmolality and hyponatremia; L02.412 Cutaneous abscess of left axilla; J45.909 Unspecified asthma, uncomplicated; E11.9 Type 2 diabetes mellitus without complications; E66.9 Obesity, unspecified; Z68.36 Body mass index [BMI] 36.0-36.9, adult; D64.9 Anemia, unspecified; D72.829 Elevated white blood cell count, unspecified; I11.0 Hypertensive heart disease with heart failure; E86.1 Hypovolemia; Z79.4 Long term (current) use of insulin; Z88.0 Allergy status to penicillin
CPT/HCPCS: 36415; 71045-TC-FY; 80048; 80053; 80197; 81003; 81015; 82570; 82728; 82962; 83540; 83550; 83605; 83735; 84100; 84156; 84300; 84466; 84484; 85025; 85044; 85610; 85730; 86850; 86900; 86901; 87040; 87070; 87086; 87186; 87205; 87389; 93005; 93010; 99285-25; G0480; J0131; J1644; J7030; J7517

== ENCOUNTER 2018-01-04 08:57 | Emergency (ER) | payer BC ==
[2018-01-04 09:14] VITALS: BP 162/95; PULSE 98; TEMP 98.3; BMI 37.9
[2018-01-04] MEDS ORDERED: SODIUM CHLORIDE 1,000 ML IV STA (09:49)
--- NOTE | 2018-01-04 10:07 | PDOC ---
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 Pt states he has been experiencing urinary frequency this morning, became concerned and checked his FS. He does not typically check his BS prior to taking his morning insulin. Took 34 units long acting insulin (which he takes BID), then 20 units regular ( that he takes with meals) and presented to the ED. FS here 295. Reports his last HgbA1C was 12%. Pt admits to drinking a lot of soda and knows this is why his glucose has been running high. Pt also reports 2 days of sore throat, otherwise denies fevers, chills, cp, sob, abd pain, n/v/d, LE edema. - Physicial Exam PE: 01/04/18 10:24 agree with resident exam - Medical Decision Making 01/04/18 10:43 47yo M hx renal transplant, DM2 (A1C 12%) presents to the ED with elevated FS prior to taking morning doses of insulin. With A1C of 12, there is a good likelihood his FS is elevated prior to insulin on a daily basis, especially with dietary indiscretion. In light of urinary frequency and sore throat however , will do infectious and DKA w/u. 01/04/18 18:15 Work up unremarkable - asbestos remover at baseline 1.5 UA negative for infection CXR with opacity in RUL that requires follow up - discussed this finding with pt. REcommended he take report to PMD for further evaluation with rpt imaging to r/o cancer etc. Pt expresses understanding Not in DKA, just hyperglycemic Discussed at length dietary changes to help lower A1C and prevent critically high blood sugars Pt clinically well appearing, requests DC home I discussed the physical exam findings, ancillary test results and final diagnoses with the patient. I answered all of the patient's questions. The patient was satisfied with the care received and felt comfortable with the discharge plan and treatment plan. The patient will call their primary care physician within 24 hours to arrange follow-up and will return to the Emergency Department with any new, persistent or worsening symptoms. Heart Score/ECG Review #1 01/04/18 10:46 Twelve-lead EKG was performed and reviewed by me. Normal sinus rhythm, rate 96. Normal axis and intervals. No ST elevations. Flipped T waves in leads 3 and aVF.
--- NOTE | 2018-01-04 10:12 | PDOC ---
History of Present Illness - General Chief Complaint: Blood Sugar Problem Stated Complaint: BLOOD SUGAR PROBLEM Time Seen by Provider: 01/04/18 09:38 History Source: Patient Exam Limitations: No Limitations - History of Present Illness Initial Comments: 01/04/18 10:03 Patient is a 47M with history of IDDM, CKD s/p kidney transplant (on tacrolimus , Cr ~1.0-1.5) here today complaining of a blood sugar over 600 at home. He endorses associated sore throat and urinary frequency. Takes 34 units of long acting insulin at home BID and 20 units with each meal. Endorses compliance with medications. Denies fevers, chills, nausea, vomiting. Denies cough, shortness of breath, chest pain, abdominal pain. Denies dysuria. Patient has history of multiple abscesses, likely MRSA. Denies any active abscesses at this time. Patient took insulin after blood sugar reading. H1Ac at 12 at baseline. 01/04/18 10:45 Past History - Past Medical History Allergies/Adverse Reactions: Allergies Allergy/AdvReac Type Severity Reaction Status Date / Time Cephalosporins Allergy Verified 01/04/18 09:12 Penicillins Allergy Verified 01/04/18 09:12 sulfamethoxazole Allergy Verified 01/04/18 09:12 [From Bactrim] trimethoprim [From Bactrim] Allergy Verified 01/04/18 09:12 Home Medications: Ambulatory Orders Albuterol Sulfate [Proair Hfa -] 1 - 2 inh PO TID 12/11/11 Aspirin [ASA -] 81 mg PO DAILY 12/11/11 Atenolol [Tenormin -] 25 mg PO DAILY 12/11/11 Atorvastatin Ca [Lipitor] 40 mg PO HS 12/11/11 Fenofibrate Nanocrystallized [Tricor] 145 mg PO DAILY 12/11/11 Sertraline HCl 200 mg PO DAILY 12/11/11 Tacrolimus 3 mg PO BID 12/11/11 Cholecalciferol (Vitamin D3) [Vitamin D -] 2,000 unit PO DAILY 09/09/17 Clotrimazole/Betamet Diprop [Lotrisone -] 1 applic TP PRN 09/09/17 Famotidine 20 mg PO DAILY 09/09/17 Insulin (LOG) Aspart [NovoLOG -] 20 units SQ BID 09/09/17 Insulin (Levemir) [Levemir Vial] 34 unit SQ BID 09/09/17 Losartan Potassium 100 mg PO DAILY 09/09/17 Magnesium Oxide [Mag-Oxide] 1,200 mg PO BID 09/09/17 Midkiff-3 Fatty Acids [Midkiff-3] 2,000 mg PO BID 09/09/17 Acetaminophen [Tylenol .Regular Strength -] 650 mg PO Q6H PRN tablet 09/13/17 Tacrolimus [Prograf] 3 mg PO BID 01/04/18 Anemia: Yes (post transplant 15 years ago) Asthma: Yes Cancer: No Cardiac Disorders: No CVA: No COPD: No CHF: No Dementia: No Diabetes: Yes GI Disorders: No Disorders: No HTN: Yes Hypercholesterolemia: No Liver Disease: No Seizures: No Thyroid Disease: No - Surgical History Abdominal Surgery: Yes (hernia repair) Appendectomy: Yes (1991) Cardiac Surgery: No Cholecystectomy: No Lung Surgery: No Neurologic Surgery: No Orthopedic Surgery: No - Immunization History Immunization Up to Date: Yes - Suicide/Smoking/Psychosocial Hx Smoking Status: No Smoking History: Never smoked Have you smoked in the past 12 months: No Number of Cigarettes Smoked Daily: 0 Information on smoking cessation initiated: No Hx Alcohol Use: No Drug/Substance Use Hx: No Substance Use Type: None Hx Substance Use Treatment: No Review of Systems - Review of Systems Comments:: 01/04/18 10:12 GENERAL/CONSTITUTIONAL: No fever or chills. No weakness. HEAD, EYES, EARS, NOSE AND THROAT: No change in vision. No ear pain or discharge. + sore throat. CARDIOVASCULAR: No chest pain or shortness of breath RESPIRATORY: No cough, wheezing, or hemoptysis. GASTROINTESTINAL: No nausea, vomiting, diarrhea or constipation. GENITOURINARY: No dysuria, +frequency, no change in urination. MUSCULOSKELETAL: No joint or muscle swelling or pain. No neck or back pain. SKIN: No rash NEUROLOGIC: No headache, vertigo, loss of consciousness, or change in strength/ sensation. ENDOCRINE: No increased thirst. No abnormal weight change HEMATOLOGIC/LYMPHATIC: No anemia, easy bleeding, or history of blood clots. ALLERGIC/IMMUNOLOGIC: No hives or skin allergy. *Physical Exam - Vital Signs Last Vital Signs Temp Pulse Resp BP Pulse Ox 98.3 F 98 H 16 162/95 98 01/04/18 09:12 01/04/18 09:12 01/04/18 09:12 01/04/18 09:12 01/04/18 09:12 - Physical Exam Comments: 01/04/18 10:14 GENERAL: Awake, alert, and fully oriented, in no acute distress HEAD: No signs of trauma, normocephalic, atraumatic EYES: PERRLA, EOMI, sclera anicteric, conjunctiva clear ENT: Auricles normal inspection, hearing grossly normal, nares patent, oropharynx bilateral white exudates with erythematous swollen tonsils NECK: Normal ROM, supple, no lymphadenopathy, JVD, or masses LUNGS: No distress, speaks full sentences, clear to auscultation bilaterally HEART: Regular rate and rhythm, normal S1 and S2, no murmurs, rubs or gallops, peripheral pulses normal and equal bilaterally. ABDOMEN: Soft, nontender, normoactive bowel sounds. No guarding, no rebound. No masses EXTREMITIES: Normal inspection, Normal range of motion, no edema. No clubbing or cyanosis. NEUROLOGICAL: Cranial nerves II through XII grossly intact. Normal speech, normal gait, no focal sensorimotor deficits SKIN: Warm, Dry, normal turgor, no rashes or lesions noted. ED Treatment Course - LABORATORY CBC & Chemistry Diagram: 01/04/18 10:10 01/04/18 10:24 - RADIOLOGY Radiology Studies Ordered: Category Date Time Status CHEST PA & LAT [RAD] Stat Radiology 01/04/18 09:50 Ordered Medical Decision Making - Medical Decision Making 01/04/18 10:45 Patient is 47M with history of kidney transplant, DM here today with high blood sugar reading at home, took insulin after reading. Vitals normal and stable. Exudates on tonsils, concern for strep. DDx also includes: uti, pneumonia, DKA, HHS. Fingerstick 295 here. Will order cbc, cmp, rapid strep, bc, ua/uc, cxr. 01/04/18 12:08 EKG shows normal sinus rhythm with rate of 96. No st elevations/depressions. Normal axis. Normal intervals. Inverted t waves in III and aVF. 01/04/18 12:10 Laboratory Tests 01/04/18 01/04/18 01/04/18 10:10 10:10 10:17 WBC 9.3 Hgb 12.5 Plt Count 256 VBG pH 7.38 Urine Nitrite Negative Ur Leukocyte Esterase Negative Urine WBC (Auto) <1 Acetone, Qual 01/04/18 10:24 WBC Hgb Plt Count VBG pH Urine Nitrite Ur Leukocyte Esterase Urine WBC (Auto) Acetone, Qual Negative CBC normal. CMP pending. UA positive for glucose, negative for infection. CXR shows no pneumonia. Patient informed of ?nodule. 01/04/18 13:26 CMP shows kidney function at baseline, glucose 278. No gap. Discharged with return precautions. *DC/Admit/Observation/Transfer Diagnosis at time of Disposition: High blood sugar - Discharge Dispostion Disposition: HOME Condition at time of disposition: Good Decision to Admit order: No - Referrals Referrals: Diogo Valencia MD [Primary Care Provider] - - Patient Instructions Printed Discharge Instructions: DI for Hyperglycemia -- Adult Additional Instructions: Please follow up with your primary care doctor regarding your blood sugar levels , as they appear to be too high chronically. Please return if you have any new, worsening or concerning symptoms, especially fever, cough, chest pain. Please follow up with your primary care doctor regarding the nodule on your chest x-ray. - Post Discharge Activity Forms/Work/School Notes: Back to Work
[2018-01-04 10:26] LABS: VENOUS PC02 42.8 mmHg (38-52); VENOUS PH 7.38 (7.32-7.42); VENOUS PO2 42.8 mmHg (28-48)
[2018-01-04 10:30] LABS: BASO % 0.5 % (0-2.0); EOS % 1.7 % (0-4.5); HEMOGLOBIN 12.5 GM/dL (11.7-16.9); LYMPH % 22.6 % (8-40); MCH 25.7 pg (25.7-33.7); MCHC 33.8 g/dl (32.0-35.9); MEAN PLT VOLUME 7.9 fl (7.5-11.1); MONO % 9.2 % (3.8-10.2); PLATELET COUNT 256 K/MM3 (134-434); RBC 4.87 M/mm3 (4.00-5.60); RDW 14.7 % (11.9-15.9); WHITE BLOOD COUNT 9.3 K/mm3 (4.0-10.0)
[2018-01-04 10:36] LABS: URINE APPEARANCE CLEAR; URINE BILIRUBIN NEGATIVE (<2.0 mg/dL); URINE COLOR STRAW; URINE GLUCOSE (UA) 3+ (NEGATIVE); URINE KETONE NEGATIVE (NEGATIVE); URINE LEUK ESTERASE NEGATIVE (NEGATIVE); URINE NITRITE NEGATIVE (NEGATIVE); URINE PROTEIN 2+ (NEGATIVE); URINE UROBILINOGEN NEGATIVE mg/dL (0.2-1.0)
[2018-01-04 10:49] LABS: PROTHROMBIN TIME (PATIENT) 11.8 SEC (9.7-13.0)
[2018-01-04 10:58] LABS: ACETONE SERUM NEGATIVE (NEGATIVE)
[2018-01-04 13:15] LABS: ALBUMIN 4.1 g/dl (3.4-5.0); ALK PHOS 128 U/L (45-117); ANION GAP 10 MMOL/L (8-16); BILIRUBIN,TOTAL 0.4 mg/dL (0.2-1); BLOOD UREA NITROGEN 36 mg/dL (7-18); CALCIUM 9.6 mg/dL (8.5-10.1); CHLORIDE 97 mmol/L (98-107); CO2 25 mmol/L (21-32); CREATININE 1.5 mg/dL (0.55-1.3); GLUCOSE,RANDOM 278 mg/dL (74-106); POTASSIUM 4.4 mmol/L (3.5-5.1); SGOT/AST 21 U/L (15-37); SGPT/ALT 29 U/L (13-61); SODIUM 132 mmol/L (136-145); TOT PROT 8.2 g/dl (6.4-8.2)
--- NOTE | 2018-01-05 11:34 | EKG ---
Test Reason : Blood Pressure : / mmHG Vent. Rate : 096 BPM Atrial Rate : 096 BPM P-R Int : 148 ms QRS Dur : 092 ms QT Int : 346 ms P-R-T Axes : 007 017 007 degrees QTc Int : 437 ms NORMAL SINUS RHYTHM NONSPECIFIC T WAVE ABNORMALITY ABNORMAL ECG WHEN COMPARED WITH ECG OF 09-SEP-2017 18:19, NO SIGNIFICANT CHANGE WAS FOUND Confirmed by LEXIS CHEATHAM MD ([id number]) on 01/05/2018 11:34:00 AM Referred By: Confirmed By:LEXIS CHEATHAM MD
== END 2018-01-04 13:36 | disposition home or self-care (01) ==
LOC: JER 08:57
PROC: 3E0337Z Introduction of Electrolytic and Water Balance Substance into Peripheral Vein, Percutaneous Approach (ICD-10-PCS; principal; 2018-01-04)
DX: E11.65 Type 2 diabetes mellitus with hyperglycemia (principal); Z79.4 Long term (current) use of insulin; I12.9 Hypertensive chronic kidney disease with stage 1 through stage 4 chronic kidney disease, or unspecified chronic kidney disease; E11.22 Type 2 diabetes mellitus with diabetic chronic kidney disease; N18.9 Chronic kidney disease, unspecified; Z94.0 Kidney transplant status; D63.8 Anemia in other chronic diseases classified elsewhere; Z87.09 Personal history of other diseases of the respiratory system
CPT/HCPCS: 36415; 71046-TC-FY; 80053; 80197; 81003; 81015; 82009; 82550; 82803; 82962; 84484; 85025; 85610; 87040; 87070; 87086; 87430; 93005; 93010; 99284-25; J7030

== ENCOUNTER 2021-10-12 04:00 | Observation (INO) | payer BC ==
[2021-10-12 06:23] LABS: BASO % 0.5 % (0-2.0); HEMATOCRIT 32.3 % (35.4-49); HEMOGLOBIN 10.9 GM/dL (11.7-16.9); LYMPH % 18.6 % (8-40); MCH 26.4 pg (25.7-33.7); MCHC 33.7 g/dl (32.0-35.9); MEAN CELL VOLUME 78.5 fl (80-96); MEAN PLT VOLUME 8.2 fl (7.5-11.1); MONO % 8.1 % (3.8-10.2); NEUT % 71.8 % (42.8-82.8); PLATELET COUNT 255 10^3/uL (134-434); RBC 4.12 M/mm3 (4.00-5.60); RDW 14.5 % (11.9-15.9); WHITE BLOOD COUNT 8.2 K/mm3 (4.0-10.0)
[2021-10-12 06:43] LABS: INR 1.1 (0.83-1.09); PROTHROMBIN TIME (PATIENT) 12.7 SEC (9.7-13.0)
[2021-10-12 06:46] LABS: ACTIVATED PTT 35.7 SECONDS (25.2-36.5)
[2021-10-12 06:50] LABS: CALCIUM 9.1 mg/dL (8.5-10.1)
[2021-10-12 06:54] LABS: CREATININE 3.2 mg/dL (0.55-1.3)
[2021-10-12 06:59] LABS: EPI CELLS 5 /uL (0-25.1); HYALINE CASTS 0 /uL (0-3.1); URINE APPEARANCE CLEAR; URINE BACTERIA 9 /uL (0-1359); URINE BILIRUBIN NEGATIVE (NEGATIVE); URINE COLOR YELLOW; URINE GLUCOSE (UA) NEGATIVE (NEGATIVE); URINE KETONE NEGATIVE (NEGATIVE); URINE LEUK ESTERASE NEGATIVE (NEGATIVE); URINE NITRITE NEGATIVE (NEGATIVE); URINE PROTEIN 3+ (NEGATIVE); URINE RBC 110 /uL (0-23.9); URINE UROBILINOGEN 0.2 mg/dL (0.2-1.0); URINE WBC 6 /uL (0-25.8)
[2021-10-12] MEDS ORDERED: amLODIPine BESYLATE 5 MG TABLET (FP) ONE (12:05)
[2021-10-12] MEDS: amLODIPine BESYLATE 5 MG TABLET (FP) PO SCH (12:05)
[2021-10-12] MEDS: TACROLIMUS ANHYDROUS 1 MG CAPSULE PO SCH ×2 (12:05→22:44)
[2021-10-12] MEDS: INSULIN SLIDING SCALE (NOVOLOG) 1 VIAL SQ SCH ×2 (12:13→17:30)
[2021-10-12] MEDS ORDERED: SODIUM CHLORIDE 0.45% 1,000 ML IV SCH (14:00)
[2021-10-12] MEDS: MYCOPHENOLATE MOFETIL 250 MG CAPSULE PO SCH ×2 (17:05→17:30)
[2021-10-12 18:34] VITALS: BMI 39.5
[2021-10-12] MEDS ORDERED: ATORVASTATIN CA 40 MG TABLET (FP) PO SCH (22:00)
[2021-10-12] MEDS: MYCOPHENOLATE MOFETIL 500 MG TABLET PO SCH (22:44)
[2021-10-12 23:53] VITALS: RESP 18
[2021-10-13] MEDS: INSULIN SLIDING SCALE (NOVOLOG) 1 VIAL SQ SCH ×2 (06:15→14:46)
[2021-10-13] MEDS ORDERED: ATENOLOL 50 MG TABLET (FP) PO SCH (10:00)
[2021-10-13] MEDS ORDERED: FENOFIBRIC ACID 135 MG CAP PO SCH (10:00)
[2021-10-13] MEDS ORDERED: HYDROCHLOROTHIAZIDE 25 MG TABLET (FP) PO SCH (10:00)
[2021-10-13] MEDS: MYCOPHENOLATE MOFETIL 500 MG TABLET PO SCH (10:01)
[2021-10-13] MEDS: TACROLIMUS ANHYDROUS 1 MG CAPSULE PO SCH (10:02)
[2021-10-13] MEDS: amLODIPine BESYLATE 5 MG TABLET (FP) PO SCH (10:02)
[2021-10-13 11:01] LABS: BASO % 0.5 % (0-2.0); EOS % 1.3 % (0-4.5); HEMATOCRIT 30.5 % (35.4-49); HEMOGLOBIN 10.4 GM/dL (11.7-16.9); LYMPH % 20.9 % (8-40); MCH 27.2 pg (25.7-33.7); MCHC 34.3 g/dl (32.0-35.9); MEAN CELL VOLUME 79.5 fl (80-96); MEAN PLT VOLUME 8.1 fl (7.5-11.1); MONO % 10.1 % (3.8-10.2); NEUT % 67.2 % (42.8-82.8); PLATELET COUNT 228 10^3/uL (134-434); RBC 3.83 M/mm3 (4.00-5.60); RDW 14.5 % (11.9-15.9); WHITE BLOOD COUNT 7.9 K/mm3 (4.0-10.0)
[2021-10-13 11:24] LABS: ALBUMIN 3.9 g/dl (3.4-5.0); BLOOD UREA NITROGEN 43.4 mg/dL (7-18); CALCIUM 9.2 mg/dL (8.5-10.1); MAGNESIUM 1.6 mg/dL (1.8-2.4)
[2021-10-13 11:26] LABS: BILIRUBIN,TOTAL 0.6 mg/dL (0.2-1); TOT PROT 7.7 g/dl (6.4-8.2)
[2021-10-13 11:27] LABS: CREATININE 2.6 mg/dL (0.55-1.3); PHOSPHOROUS 3.9 mg/dL (2.5-4.9)
[2021-10-13] MEDS ORDERED: amLODIPine BESYLATE 10 MG TABLET (FP) PO SCH (14:15)
[2021-10-13 16:31] VITALS: BP 148/86; PULSE 76; TEMP 98.1
== END 2021-10-13 17:32 | disposition home or self-care (01) ==
LOC: JER 04:00 → INTOOBSV 07:43 → JERBED 07:43 → UNDOADMOB 07:43 → J5S 16:56 → JERBED 16:56 → J5S 17:05 → JERBED 10-13 14:58
PROVIDERS: ADMIT Internal Medicine; ATTEND Internal Medicine
PROC: 3E0337Z Introduction of Electrolytic and Water Balance Substance into Peripheral Vein, Percutaneous Approach (ICD-10-PCS; principal; 2021-10-13)
DX: E11.22 Type 2 diabetes mellitus with diabetic chronic kidney disease (principal); I12.9 Hypertensive chronic kidney disease with stage 1 through stage 4 chronic kidney disease, or unspecified chronic kidney disease; N18.9 Chronic kidney disease, unspecified; T85.618A Breakdown (mechanical) of other specified internal prosthetic devices, implants and grafts, initial encounter; Z94.0 Kidney transplant status; R31.9 Hematuria, unspecified; Y82.8 Other medical devices associated with adverse incidents; E78.5 Hyperlipidemia, unspecified; E66.8 Other obesity; Z68.38 Body mass index [BMI] 38.0-38.9, adult; Z88.0 Allergy status to penicillin; Z88.8 Allergy status to other drugs, medicaments and biological substances
CPT/HCPCS: 36415; 76775-TC; 76856-TC; 80048; 80053; 80197; 81003; 82570; 82962; 83735; 84100; 84156; 85025; 85610; 85730; 86850; 86900; 86901; 87086; 96365; 99285-25; C9803-CS; G0378; J7517; U0003; U0005